=== PATIENT | male | born 1975 | race Caucasian/White ===

== ENCOUNTER → 2022-01-10 12:24 | Outpatient (BNVA) | payer SELFPAY | PROVIDERS: PCP Registered Nurse; Visit Provider Physician Assistant | DX: Z13.89 Encounter for screening for other disorder (principal) ==

== ENCOUNTER 2022-04-19 10:09 | Day surgery (SDC) | payer OTHER, SELFPAY ==
--- NOTE | 2022-04-18 11:59 | P.CONAN_ITS ---
Documented by User: Daina Urrutia NP 04/18/22 11:59 HPI - Anesthesia Eval Consult details Narrative: 47yo M for Colonoscopy [facility] Active Problems Active Problems: All Active Problems (Updated 04/13/22 @ 15:14 by Syeda Lamar, RN) Encounter for screening colonoscopy (Acute) Abdominal pain (Acute) Past Medical History Medical History (Updated 04/13/22 @ 15:14 by Syeda Lamar, RN) Elevated cholesterol History of COVID-19 Lactose intolerance Sleep pattern disturbance Family History Family History (Updated 01/10/22 @ 12:49 by Richelle Jim PA-C) Brother Crohn disease Mother Crohn disease Surgical History Surgical History (Updated 04/13/22 @ 15:11 by Syeda Lamar RN) Hx of colonoscopy Social History Social History (Updated 01/10/22 @ 12:54 by Richelle Jim PA-C) Household Members Other:: single Housing: House Alcohol intake: current Patient Tobacco Use Status: Never used Tobacco Advance Directives: No Advance Directives Information Provided: Yes Current occupational status: employed Current occupation: [email or web address] Meds Allergies Allergy/AdvReac Type Severity Reaction Status Date / Time No Known Allergies Allergy Verified 04/13/22 15:11 Home Medications Medication Instructions Recorded Confirmed Last Taken Type cholestyramine (with sugar) 4 gram 1 ea PO BID 01/10/22 04/13/22 Unknown History powder for susp in a packet trazodone 50 mg tablet 1 tab PO BEDTIME 04/13/22 04/13/22 Unknown History Exam Exam Date and Time: April 18, 2022 115 Assessment and Plan Assessment Anesthesia Assessment: Chart Reviewed Documented by User: Sabiha Eaton MD 04/19/22 10:41 [facility] Past Medical History Medical History (Updated 04/13/22 @ 15:14 by Syeda Lamar RN) Elevated cholesterol History of COVID-19 Lactose intolerance Sleep pattern disturbance Family History Family History (Updated 01/10/22 @ 12:49 by Richelle Jim PA-C) Brother Crohn disease Mother Crohn disease Family history of problems with anesthesia: No Surgical History Surgical History (Updated 04/13/22 @ 15:11 by Syeda Lamar RN) Hx of colonoscopy History of Problems with Anesthesia: No Social History Social History (Updated 01/10/22 @ 12:54 by Richelle Jim PA-C) Household Members Other:: single Housing: House Alcohol intake: current Patient Tobacco Use Status: Never used Tobacco Advance Directives: No Advance Directives Information Provided: Yes Current occupational status: employed Current occupation: [email or web address] Meds Allergies Allergy/AdvReac Type Severity Reaction Status Date / Time No Known Allergies Allergy Verified 04/13/22 15:11 Home Medications Medication Instructions Recorded Confirmed Last Taken Type cholestyramine (with sugar) 4 gram 1 ea PO BID 01/10/22 04/13/22 Unknown History powder for susp in a packet trazodone 50 mg tablet 1 tab PO BEDTIME 04/13/22 04/13/22 Unknown History Exam Airway Mallampati Class: II TM Dist: >3cm Neck ROM: Full Heart: rrr Lungs: cta Assessment and Plan Assessment Anesthesia Assessment: Anesthesia Plan Discussed and Chart Reviewed Final Anesthetic Review Family History of Problems with Anesthesia: No History of Problems with Anesthesia: No NPO: Yes ASA Class: II Final Preanesthetic Review: No Changes in Pt Med Stat, Meds/Allgs Chart Reviewed and Consent Obtained/Reviewed Patient Risk: Intermediate Procedure Risk: Intermediate Anesthetic Plan Anesthetic Plan: MAC: Disposition: Standard PACU
[2022-04-19 10:28] VITALS: BMI 32.2
[2022-04-19 10:30] VITALS: BP 136/93; PULSE 83; RESP 18; TEMP 36.1; O2SAT 97
[2022-04-19] MEDS: Lactated Ringers 1,000 ML 50 ML IVCONT (10:56)
--- NOTE | 2022-04-19 11:01 | MHC.SHP ---
Pre-Procedural Eval Section A Date of Service: 04/19/22 Section B Chief Complaint: Abd pain Details of Present Illness: This is a 46-year-old gentleman who is here for diagnostic colonoscopy for chronic diarrhea. Pt was previously also having LLQ pain for months earlier this year which has now resolved. He cont to have diarrhea however, has 2-3 soft BMs everyday with mild urgency but no tenesmus or blood. Had similar issues 6 years and was well, and that time had EGD and colonoscopy at [facility]. Was told he has diverticulosis but otherwise normal. Do not have these reports in system. Family history is pertinent for Crohn's disease in mom and brother. Father: prostate ca. No labs or imaging in system. Relevant Social History: Alcohol Use (occasional) Present Medications: see Short Stay Collaborative assessment Medical History: No relevant PMH History of Previous Operations: No relevant previous surgery Allergies: Allergies Allergy/AdvReac Type Severity Reaction Status Date / Time No Known Allergies Allergy Verified 04/13/22 15:11 Review of Systems Review of Systems Comment: Ten point review of system is negative except as mentioned above Exam Exam Comment: Gen appear: No acute distress, well nourished HEENT: no icterus, Chest: No overt resp distress Abd: soft, nontender, nondistended Psych: Stable affect, answering questions appropriately Neuro: A/Ox3 noted to move all extremities spontaneously Ext: no peripheral edema Plan Diagnosis/Plan: Unchanged I have reviewed the history and physical and performed a pertinent physical examination on my patient. No changes have occurred unless specified.
--- NOTE | 2022-04-19 11:12 | P.OP_ITS ---
Operative Note Operative Note Date of Service: 04/19/22 Narrative: Procedure: Colonoscopy Indication: Chronic Diarrhea Endoscopist: Jodi De Los Santos MD Anesthesia Provider: Dr Sabiha Rodriguez Anesthesia type: MAC Instrument: Olympus [id number]-[id number] Consent: Indication, risks vs benefits, and alternatives were discussed with the patient who gave written informed consent to proceed. Monitoring: EKG, pulse, pulse oximetry and blood pressure were monitored throughout the procedure. Medications: Please see anesthesia flowsheet. Procedure: The patient was brought to the procedure room and placed in the left lateral decubitus position. IV medications were administered by the anesthesia provider in attendance. A digital rectal exam was performed which was normal. The colonoscope was then inserted through the anus and advanced through the colon to the cecum at 80 cm, and terminal ileum. Mucosa was carefully examined under high definition white light as the instrument was slowly withdrawn in a retrograde panoramic fashion. Retroflexion was performed in rectum. The procedure was not difficult There were no immediate obvious complications. The quality of the prep was BBPS: 3+3+3 = adequate Withdrawal time 15 minutes. Limitations: No limitations. Findings: Mucosa: Normal to cecum and terminal ileum. Up to 25 cm of terminal ileum was carefully inspected. Random cold forceps biopsies were taken from right and left side of colon to r/o microscopic colitis. Protruding lesions: * Medium external hemorrhoids without stigmata of recent bleeding. Impression: 1. Normal colon and terminal ileum mucosa. (colon biopsy) 2. External hemorrhoids Recommendations: - Follow path results. Office will call or send a letter in 7-10 days with results. - Can take PRN antidiarrheal such as loperamide or imodium in the meantime. - Follow up in GI office as scheduled. - Repeat colonoscopy in 10 years for colon cancer screening.
[2022-04-19 11:45] VITALS: BP 105/75; PULSE 77; RESP 16; TEMP 36.3; O2SAT 94
[2022-04-19 12:00] VITALS: BP 115/81; PULSE 69; RESP 18; O2SAT 94
[2022-04-19 12:15] VITALS: BP 120/84; PULSE 69; RESP 18; TEMP 36.3; O2SAT 98
== END 2022-04-19 12:31 | disposition home or self-care (01) ==
PROVIDERS: PCP Registered Nurse; Visit Provider Internal Medicine
PROC: 0DJD8ZZ Inspection of Lower Intestinal Tract, Via Natural or Artificial Opening Endoscopic (ICD-10-PCS; CPT 45378; principal; 2022-04-19 12:30)
DX: Z12.11 Encounter for screening for malignant neoplasm of colon (principal); K64.8 Other hemorrhoids; K64.4 Residual hemorrhoidal skin tags; K52.9 Noninfective gastroenteritis and colitis, unspecified; E73.9 Lactose intolerance, unspecified; E78.00 Pure hypercholesterolemia, unspecified; G47.9 Sleep disorder, unspecified; Z79.899 Other long term (current) drug therapy; Z86.16 Personal history of COVID-19
CPT/HCPCS: 45380; 88305

== ENCOUNTER 2023-12-06 10:52 | Outpatient (REF) | payer OTHER, SELFPAY ==
--- NOTE | ~2023-12-06 | XR_ITS ---
EXAMINATION: XR CERVICAL SPINE XR LUMBAR SPINE XR SACROILIAC JOINTS XR ELBOW, BILATERAL XR KNEE, BILATERAL XR HAND/WRIST, BILATERAL COMPARISON: None available. TECHNIQUE: 5 views cervical spine. AP standing, sunrise, tunnel and lateral views of each knee. 4 views of each hand/wrist. 3 views of each elbow. 5 views of the lumbosacral spine. 3 views of the bilateral sacroiliac joints. FINDINGS: Left Hand/Wrist: Moderate degenerative changes in the first carpometacarpal joint with joint space narrowing and hypertrophic change. Alignment preserved. No acute displaced fracture appreciated. Bone mineralization is normal. Right Hand/Wrist: Moderate degenerative changes in the first carpometacarpal joint with joint space narrowing and hypertrophic change. Alignment preserved. Bone mineralization is normal. Sclerotic focus overlying the distal tuft of the right thumb. Cervical Spine: Bilateral facet hypertrophy with neural foraminal encroachment at C5-C6. Cervical spondylosis with moderate loss of disc space height at C5-C6. Left Knee: No significant joint effusion. Anterior superior patellar spur. Mild narrowing of the medial compartment. Tiny posterior patellar spurring. Right Knee: No significant joint effusion. Anterior superior patellar spur. Mild narrowing of the medial compartment. Left Elbow: Elbow joint effusion. Ossicle along the posterior aspect of an olecranon spur, possibly degenerative versus avulsion fracture of indeterminate age. Prominent 1 cm ossicle/calcification in the soft tissues adjacent to the medial epicondyle/distal humerus of indeterminate age and etiology. Faint ossific/calcific densities in the humeral radial articulation and adjacent soft tissues. Right Elbow: Prominent olecranon spur with thickening of the overlying soft tissues. Possible joint effusion is difficult to confirm. Alignment maintained. Mild spurring along the radial head. Lumbar Spine: Facet arthritis in the lower lumbar spine. Mild step-off between the segments of the distal aspect of the coccyx and remainder of the sacrum and coccyx of indeterminate age and etiology. Slight rightward curvature of the lumbar spine. Mild multilevel lumbar spondylosis. Bilateral Sacroiliac Joints: Mild degenerative changes in the bilateral sacroiliac joints. Degenerative changes on limited views of the bilateral hips. Pubic symphysis is maintained. Surgical clips overlie the scrotal region on the right. XR/XR sacroiliac joint min 3V IMPRESSION: 1. Moderate degenerative changes in the bilateral first carpometacarpal joints. 2. Cervical spondylosis with moderate loss of disc space height at C5-C6. 3. Mild degenerative changes in the bilateral knees. 4. Left elbow joint effusion. Ossicle along the posterior aspect of an olecranon spur, possibly degenerative versus avulsion fracture of indeterminate age. Prominent 1 cm ossicle/calcification in the soft tissues adjacent to the medial epicondyle/distal humerus of indeterminate age and etiology. 5. Prominent olecranon spur with thickening of the overlying soft tissues. Possible joint effusion is difficult to confirm. 6. Mild step-off between the segments of the distal aspect of the coccyx and remainder of the sacrum and coccyx of indeterminate age and etiology. 7. Mild degenerative changes in the bilateral sacroiliac joints. Degenerative changes on limited views of the bilateral hips. Additional imaging with MRI recommended if there is clinical concern for fracture or other underlying pathology.
== END 2023-12-06 10:53 | disposition home or self-care (01) ==
LOC: HO.XRAY 10:52
PROVIDERS: PCP Registered Nurse; Visit Provider Student in an Organized Health Care Education/Training Program
DX: M06.9 Rheumatoid arthritis, unspecified (principal); M25.50 Pain in unspecified joint; M47.812 Spondylosis without myelopathy or radiculopathy, cervical region; M25.422 Effusion, left elbow
CPT/HCPCS: 72050; 72110; 72202; 73080; 73110; 73130; 73564

== ENCOUNTER 2024-01-07 08:24 | Outpatient (REF) | payer OTHER, SELFPAY ==
[2024-01-07 09:35] LABS: MANUAL DIFF FLAG NO
[2024-01-07 10:07] LABS: Basophils Absolute Auto 0.1 X10*3/uL (0.0-0.2); Basophils Percent Auto 1.1 % (0-2); Eosinophils Absolute Auto 0.3 X10*3/uL (0.0-0.4); Eosinophils Percent Auto 5.5 % (0-4); Hematocrit 46.8 % (42.0-52.0); Hemoglobin 16.4 g/dl (14.0-18.0); Imm Gran Abs Auto 0.03 X10*3/uL (0.00-0.03); Imm Gran Pct Auto 0.5 % (0.0-0.4); Lymphocytes Absolute Auto 2.6 X10*3/uL (1.2-4.9); Lymphocytes Percent Auto 45.6 % (20-40); Mean Corpuscular Hemoglobin 30.5 pg (27.0-33.0); Mean Platelet Volume 9.4 fL (9.4-12.4); Monocytes Absolute Auto 0.5 X10*3/uL (0.1-1.2); Monocytes Percent Auto 9.4 % (2-11); Neutrophils Absolute Auto 2.1 x10*3/uL (2.0-8.3); Neutrophils Percent Auto 37.9 % (45-73); Platelet Count 230 X10*3/uL (160-400); Red Blood Count 5.38 X10*6/uL (4.60-5.80); Red Cell Distribution Width 12.4 % (11.0-16.0); White Blood Count 5.6 X10*3/uL (4.8-10.8)
[2024-01-07 10:55] LABS: Alanine Aminotransferase 70 U/L (0-40); Alkaline Phosphatase 63 U/L (39-117); Anion Gap 15 (12-20); Aspartate Amino Transferase 40 U/L (5-37); Bilirubin Total 0.5 mg/dL (0.0-1.0); Blood Urea Nitrogen 16 mg/dL (9-16); C Reactive Protein 0.54 mg/dL (< or = 0.50); Calcium 9.2 mg/dL (8.4-10.2); Carbon Dioxide 24 mmol/L (22-29); Chloride 105 mmol/L (96-108); Estimated Glomerular Filt Rate > 60; Glucose Random 97 mg/dL (60-115); Potassium 3.8 mmol/L (3.3-5.1); Sodium 140 mmol/L (135-145); Total Protein 7.1 g/dL (6.5-8.0)
[2024-01-07 11:12] LABS: HBS Num1 0.31 mIU/mL (0-7.99); HBc Num1 0.07 S/CO (0.00-0.79); HBsAGNum1 0.26 S/CO (0.00-0.99); Hepatitis A Antibody IgM 0.17 Index (0-0.79); Hepatitis B Core Antibody Nonreactive (Nonreactive); Hepatitis B Surface Antigen Negative (Negative); ~HepC Num1 0.07 S/CO (0.00-0.79); ~Hepatitis A Antibody IgM Nonreactive (Nonreactive); ~Hepatitis B Surface Antibody NONREACTIVE (Nonreactive); ~Hepatitis C Antibody Nonreactive (Nonreactive)
[2024-01-09 18:13] LABS: IgA 287 mg/dL (47-310); IgG 1020 mg/dL (600-1640); IgM 82 mg/dL (50-300)
[2024-01-09 21:13] LABS: Prot Elec - Albumin 4.3 g/dL (3.8-4.8); Prot Elec - Alpha1 0.3 g/dL (0.2-0.3); Prot Elec - Alpha2 0.6 g/dL (0.5-0.9); Prot Elec - Beta 1 0.5 g/dL (0.4-0.6); Prot Elec - Beta 2 0.5 g/dL (0.2-0.5); Prot Elec - Gamma 0.9 g/dL (0.8-1.7); Prot Elec - Total Protein 6.9 g/dL (6.1-8.1)
[2024-01-10 08:04] LABS: TS Negative Control Passed; TS Panel A 1; TS Panel B 0; TS Positive Control Passed; TSpotTB Negative (Negative)
[2024-01-10 14:03] LABS: HLA B27 Positive (Negative)
[2024-01-10 23:14] LABS: Angiotensin Converting Enzyme 28.2 U/L (9-67)
[2024-01-15 14:28] LABS: Lysozyme, Serum 5.7 mcg/mL (5.0-11.0)
== END 2024-01-07 08:25 | disposition home or self-care (01) ==
LOC: HO.LAB 08:24
PROVIDERS: PCP Registered Nurse; Visit Provider Student in an Organized Health Care Education/Training Program
DX: Z11.59 Encounter for screening for other viral diseases (principal); Z11.7 Encounter for testing for latent tuberculosis infection; M06.9 Rheumatoid arthritis, unspecified; D86.9 Sarcoidosis, unspecified; M45.9 Ankylosing spondylitis of unspecified sites in spine; K50.10 Crohn's disease of large intestine without complications; Z72.89 Other problems related to lifestyle
CPT/HCPCS: 80053; 82164; 82550; 82784; 84165; 85025; 85549; 86021; 86036; 86140; 86334; 86481; 86671; 86704; 86706; 86709; 86803; 86812; 87340

== ENCOUNTER 2024-01-07 08:24 | Outpatient (AMB) | payer OTHER, SELFPAY ==
[2024-01-07 08:26] VITALS: BP 130/74; PULSE 79; O2SAT 98; BMI 36.1
--- NOTE | 2024-01-07 08:26 | A.OFFVIS_ITS ---
Vital Signs 01/07/24 08:26 Height 5 ft 7 in Weight 230 lb 6.129 oz BMI 36.1 BP 130/74 Blood Pressure Location Rt brachial Position Sitting Pulse 79 Pulse Source Pulse Oximeter Pulse Oximetry (%) 98 Oxygen Delivery Method Room Air Intake Visit Reasons: RF +ve Intake Note: Patient last seen 12/06/23 presents today for follow up and test results. Translator And Interpreter Required: No Accompanied by: Self / Same As Patient Allergies No Known Allergies Allergy (Verified 01/07/24 08:38) Medication List - Last Reconciled 01/07/24 by Odalys Hong MD cholecalciferol (vitamin D3) 25 mcg PO DAILY loperamide (Imodium A-D) 2 mg PO Q6H PRN multivitamin 1 tab PO DAILY naproxen 500 mg PO BID thiamine HCl (vitamin B1) (Vitamin B-1) 100 mg PO DAILY tramadol 50 mg PO Q4H PRN HPI Comments Details: Patient returns for follow-up after completion of his x-rays. He did not do the ordered blood work. Stated that he has been under lot of stress recently as his mother and he had to drive to [place]. States that his joint pain is much more severe especially back as he has been doing plenty of driving recently. He has been off the prednisone and his joint pain is worse. Especially of his elbows, wrists, back. He drinks multiple alcoholic beverages nightly to deal with all the stress. Initial history: This is a 48-year-old male who presents for evaluation of multiple joint pain and positive rheumatoid factor. Stated that the condition started about 3 years ago when he developed an infectious mononucleosis infection. Around that time he was having multiple joint pain including his knees, elbows. Told that he had high levels of inflammation. A few months later he was diagnosed with a CMP infection and was told that he had similar symptoms. He was also treated for Lyme disease. Does Not recall being evaluated by [facility]. States that he has had numerous moles of treatment such as physical therapy, chiropractor, acupuncture. He was evaluated by pain management and had facet injections as well as trigger point injections. States that some of the injections did help. States that he would have different courses of steroids which help transiently. States that he was diagnosed with a corneal condition and has done numerous surgeries for his corneas. Does not recall ever being diagnosed with uveitis or iritis. His brother and mother both have Crohn's disease. Patient had a colonoscopy in 2021 which did not show colitis. Most recently he was started on a steroid taper by his PCP starting at 6 tabs daily. Currently he is on 2 tabs daily. The majority of his pain is in both is elbows, worse on the right. The pain radiates down his right hand and wrist. States that 2 years ago he fell and broke his right elbow and had right elbow surgery to clean out the chipped off bone States that his elbow pain is unrelated to that surgery. He also has diffuse back pain and stiffness. Denies any fevers or weight loss. Previously patient was doing different exercises such as volleyball, basketball and power lifting. Over the last 3 years he has not been able to do any of that. Denies any history of STDs or genital infections. He was recently evaluated at the [facility] 3 weeks ago and was told that he has fibromyalgia [facility] Medical History (Updated 01/07/24 @ 09:04 by Odalys Hong MD) Polyarthralgia Sleep pattern disturbance History of COVID-19 Lactose intolerance Elevated cholesterol Surgical History Hx of colonoscopy Family History Brother Crohn disease Mother Crohn disease Social History Household Members Other:: single Housing: House Alcohol intake: current Alcohol intake frequency: a few times a week Patient Tobacco Use Status: Never used Tobacco Current occupational status: employed Current occupation: IT[employer] Review of Systems Const Reports fatigue and Reports weakness Musc Reports back pain, Reports deformity, Reports arthralgias, Reports muscle weakness and Reports stiffness Neuro Reports weakness Psych Reports abnormal sleep pattern, Reports anxiety and Reports depression Endo Reports fatigue Physical Exam Vital Signs: Last Vital Signs Pulse 79 01/07/24 08:26 BP 130/74 01/07/24 08:26 Pulse Ox 98 01/07/24 08:26 Oxygen Delivery Method Room Air 01/07/24 08:26 BMI result Body Mass Index 36.1 Const General: cooperative, healthy appearing and comfortable Nutritional Appearance: obese Orientation/consciousness: patient oriented x3 Limitations: no limitations HEENT Head: Yes normocephalic and Yes atraumatic Mouth: moist mucous membranes Resp Effort & Inspection: normal respiratory effort and able to speak in complete sentences Auscultation: clear to auscultation bilaterally Cardio Rate: regular rate Rhythm: regular rhythm GI Inspection: No distended Palpation (GI): Soft to palpation and nontender Skin General skin exam: no rashes or lesions noted Neuro General: patient oriented x3 Extrem Other: Left wrist tenderness to palpation and pain with full extension No swelling or tenderness left hand No left elbow pain with full flexion and extension Right wrist tenderness Mildly reduced right hand manager copy strength Positive resisted wrist extension test on the right Tenderness upon palpation of the right common extensor origin No nail pitting Normal nailfold capillaroscopy Normal range of motion of shoulders without pain Positive lift-off test on the right No knee swelling or tenderness bilaterally No ankle swelling or tenderness bilaterally Wicho test 10-15 cm Normal lateral flexion test Almost normal range of motion of neck Results Reviewed Results Reviewed: Labs 10/2023? CATRACHO screen IFA/dsDNA Crithidia/chromatin/Grissom/SOFTWARE QUALITY SPECIALIST/SSA/SSB/SCL 70/Nereyda 1/centromere/cardiolipin IgA/cardiolipin IgG/cardiolipin IgM/beta 2 glycoprotein IgA/beta 2 glycoprotein IgG G/beta 2 glycoprotein IgM/CCP/citrullinated vimentin/TPO all negative C3 and C4 normal Rheumatoid factor IgA 7 RF factor IgG 6 RF factor IgM 37 H CBC unremarkable CMP unremarkable ESR 11 CRP 4.5 (<8.0) TSH 4.06 normal? T4 7.6 normal? T3 uptake 28% normal Tick panel negative HIV 1/2 antibody/antigen 4th generation negative Total cholesterol 356? Triglyceride 414? HDL 65? LDL 256 Assessment & Plan Assessment & Plan (1) Polyarthralgia: Code(s): M25.50 - Pain in unspecified joint Category: Medical Plan: This is a 48-year-old male who presents for evaluation of 3 year history of diffuse joint pain including back, elbows, knees. Recent labs showed positive rheumatoid factor. Positive family history of Crohn's colitis. Colonoscopy in 2021 was negative for inflammatory bowel disease. Will order comprehensive serology to screen for underlying autoimmune rheumatic disease. Check x-rays of involved joints. Will request records from patient's other providers Advised patient to try to hold off on taking any prednisone or NSAIDs before next visit Follow-up in about 6 weeks (2) Seropositive rheumatoid arthritis: Comment: +RF -ve CCP dx 12/2023 Code(s): M05.9 - Rheumatoid arthritis with rheumatoid factor, unspecified Category: Medical Plan: This is a 48-year-old male who presents for evaluation of 3 year history of diffuse joint pain including back, elbows, knees.? Recent labs showed positive rheumatoid factor.? Positive family history of Crohn's colitis.? Colonoscopy in 2021 was negative for inflammatory bowel disease.? On exam he has multiple tender and swollen joint. He has bilateral elbow joint effusion on exam. Clinical picture consistent with new onset seropositive rheumatoid arthritis. Will need to start DMARDs. Patient is not a candidate for sulfasalazine, leflunomide and methotrexate due to excessive alcohol consumption. Discussed risks and benefits of Humira. Patient agreed to proceed. Will start prior authorization for Humira Labs today and before next visit in 3 months. Awaiting T spot send Humira prescription (3) High risk medication use: Code(s): Z79.899 - Other long term acute care registered nurse (current) drug therapy Category: Medical Plan: Side effects of Enbrel were discussed with the patient in detail including increased risk of infection, demyelinating disease, reactivation of latent TB, possible increased risk of solid and skin tumors, injection site reactions. Patient fully aware. Advised patient to seek medical care RAKEL if patient has an infection and advised patient to stop the medication until the infection is resolved. Plan I spent 29 minutes reviewing patient's chart, evaluating patient, ordering diagnostic workup, counseling patient and documenting in the chart Orders: Orders Complete Blood Count Auto Diff 3 Months M06.9 - Rheumatoid arthritis, unspecified Comprehensive Met. Panel 3 Months M06.9 - Rheumatoid arthritis, unspecified C Reactive Protein 3 Months M06.9 - Rheumatoid arthritis, unspecified Erythrocyte Sedimentation Rate 3 Months M06.9 - Rheumatoid arthritis, unspecified Coding Level of Care Code Est Pt Level 4 (70329) Diagnoses Polyarthralgia M25.50 Seropositive rheumatoid arthritis M05.9 High risk medication use Z79.899
== END 2024-01-07 09:00 | disposition home or self-care (01) ==
PROVIDERS: PCP Registered Nurse; Visit Provider Student in an Organized Health Care Education/Training Program
DX: M05.79 Rheumatoid arthritis with rheumatoid factor of multiple sites without organ or systems involvement (principal); M25.50 Pain in unspecified joint; Z79.899 Other long term (current) drug therapy
CPT/HCPCS: 99214

== ENCOUNTER 2024-01-24 12:46 | Outpatient (AMB) | payer OTHER, SELFPAY ==
--- NOTE | 2024-01-24 12:48 | MHC.OFFVIS ---
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 The patient states that 2 weeks ago he splinted 3-4 steps when he had acute onset of pain. He had an ultrasound of his left lower leg last week which showed tearing of his medial gastrocnemius muscle. He has been weight-bearing as tolerated. Allergies No Known Allergies Allergy (Verified 01/24/24 12:50) Medication List - Last Reconciled 01/25/24 by Fermin Mcgill MD cholecalciferol (vitamin D3) 25 mcg PO DAILY Hyrimoz(CF) Pen (adalimumab-adaz) 40 mg (0.4 mL) subcut Q14D NS loperamide (Imodium A-D) 2 mg PO Q6H PRN multivitamin 1 tab PO DAILY naproxen 500 mg PO BID thiamine HCl (vitamin B1) (Vitamin B-1) 100 mg PO DAILY PFSH Medical History (Updated 01/25/24 @ 07:39 by Fermin Mcgill MD) Polyarthralgia Sleep pattern disturbance History of COVID-19 Lactose intolerance Elevated cholesterol Surgical History Hx of colonoscopy Family History Brother Crohn disease Mother Crohn disease Social History Household Members Other:: single Housing: House Alcohol intake: current Alcohol intake frequency: a few times a week Patient Tobacco Use Status: Never used Tobacco Current occupational status: employed Current occupation: [employer] Physical Exam Const Other: Well-nourished well-developed very friendly male awake alert and oriented x3 in no acute distress Extrem Other: Bilateral lower extremity examination shows good capillary refill, no skin lesions noted, normal sensation light touch Left calf examination shows no tenderness along his Achilles tendon, no palpable defect, tenderness and swelling along the mid aspect of his medial calf, no overlying skin lesions, his leg compartments are soft Results Reviewed Results Reviewed: Ultrasound of the patient's left lower leg performed on 01/18/2024 shows a hemorrhagic collection within the left medial gastrocnemius muscle consistent with a grade 2-3 tear Assessment & Plan Assessment & Plan (1) Pain of left calf: Code(s): M79.662 - Pain in left lower leg Category: Medical Plan Mr. Reyes presents with left calf pain due to a medial gastrocnemius muscle tear. I had a lengthy discussion with the patient regarding the treatment options. The patient's injury should heal over the next few months with non operative treatment. We will hold off on physical therapy for now because the patient still remains quite tender. I will see him back in 3-4 weeks' time for repeat clinical examination. If his discomfort at that time has improved we will further discuss having him go to formal physical therapy. Feel free to call me at any time should questions regarding his orthopedic management arise. I spent 21 minutes in reviewing the patient's records and imaging studies, seeing the patient and documenting in the medical record. Coding Level of Care Code New Pt Level 2 (05165) Diagnoses Pain of left calf M79.662
== END 2024-01-24 13:15 | disposition home or self-care (01) ==
PROVIDERS: PCP Registered Nurse; Visit Provider Orthopaedic Surgery
DX: M79.662 Pain in left lower leg (principal)
CPT/HCPCS: 99203

== ENCOUNTER → 2024-01-24 12:46 | Outpatient (BNVA) | payer OTHER, SELFPAY | PROVIDERS: PCP Registered Nurse; Visit Provider Orthopaedic Surgery ==

== ENCOUNTER 2024-02-25 08:58 | Outpatient (AMB) | payer OTHER, SELFPAY ==
--- NOTE | 2024-02-25 09:06 | A.OFFVIS_ITS ---
Vital Signs 02/25/24 09:07 Height 5 ft 7 in Weight 220 lb BMI 34.5 Intake Visit Reasons: OV-2-3 Muscle tear, left leg Intake Note: Herberth is a 49 yr old male who presents for routine follow-up after suffering a left calf strain on 01/14/2024. The patient states that he has been going to formal physical therapy over the last few weeks. States that his discomfort has improved significantly. He has been able to do quite a bit of walking while vacationing in [place], [place]. He has also returned to riding his motorcycle without difficulty. He takes Advil as needed for his discomfort. Allergies No Known Allergies Allergy (Verified 02/25/24 09:08) Medication List - Last Reconciled 02/25/24 by Fermni Mcgill MD adalimumab (Humira Pen) inject one - 40 mg/0.8 mL pen every 2 weeks subcut cholecalciferol (vitamin D3) 25 mcg PO DAILY Hyrimoz(CF) Pen (adalimumab-adaz) 40 mg (0.4 mL) subcut Q14D NS loperamide (Imodium A-D) 2 mg PO Q6H PRN multivitamin 1 tab PO DAILY naproxen 500 mg PO BID thiamine HCl (vitamin B1) (Vitamin B-1) 100 mg PO DAILY PFSH Medical History (Updated 01/25/24 @ 07:39 by Fermin Mcgill MD) Polyarthralgia Sleep pattern disturbance History of COVID-19 Lactose intolerance Elevated cholesterol Surgical History Hx of colonoscopy Family History Brother Crohn disease Mother Crohn disease Social History Household Members Other:: single Housing: House Alcohol intake: current Alcohol intake frequency: a few times a week Patient Tobacco Use Status: Never used Tobacco Current occupational status: employed Current occupation: [employer] Physical Exam Vital Signs: BMI result Body Mass Index 34.5 Const Other: Well-nourished well-developed very friendly male awake alert and oriented x3 in no acute distress Extrem Other: Bilateral lower extremity examination shows good capillary refill, no skin lesions noted, normal sensation light touch Left calf examination shows mild tenderness to palpation over the mid aspect of his calf musculature, no defects, minimal discomfort with resisted plantar flexion, no overlying skin lesions Assessment & Plan Assessment & Plan (1) Pain of left calf: Code(s): M79.662 - Pain in left lower leg Category: Medical Plan Mr. Reyes continues to improve after suffering a left calf strain on 01/14/2024. He will continue going to formal physical therapy for now. He will continue with his activity modifications. He will gradually transition to a home stretching program. He will contact me prior to his follow-up appointment in 2 months should any questions or concerns arise. Feel free to call me at any time should questions regarding his orthopedic arise. I spent 20 minutes in reviewing the patient's records and imaging studies, seeing the patient and documenting in the medical record. Coding Level of Care Code Est Pt Level 3 (70352) Diagnoses Pain of left calf M79.662
[2024-02-25 09:07] VITALS: BMI 34.5
== END 2024-02-25 09:27 | disposition home or self-care (01) ==
PROVIDERS: PCP Registered Nurse; Visit Provider Orthopaedic Surgery
DX: M79.662 Pain in left lower leg (principal)
CPT/HCPCS: 99213

== ENCOUNTER → 2024-02-25 08:58 | Outpatient (BNVA) | payer OTHER, SELFPAY | PROVIDERS: PCP Registered Nurse; Visit Provider Orthopaedic Surgery ==

== ENCOUNTER 2024-03-27 16:13 | Outpatient (REF) | payer OTHER, SELFPAY ==
[2024-03-27 16:26] LABS: MANUAL DIFF FLAG NO
[2024-03-27 17:18] LABS: Basophils Absolute Auto 0.1 X10*3/uL (0.0-0.2); Basophils Percent Auto 0.7 % (0-2); Eosinophils Absolute Auto 0.5 X10*3/uL (0.0-0.4); Eosinophils Percent Auto 5.6 % (0-4); Hematocrit 49.3 % (42.0-52.0); Hemoglobin 17.1 g/dl (14.0-18.0); Imm Gran Abs Auto 0.04 X10*3/uL (0.00-0.03); Imm Gran Pct Auto 0.4 % (0.0-0.4); Lymphocytes Absolute Auto 3.1 X10*3/uL (1.2-4.9); Lymphocytes Percent Auto 34.5 % (20-40); Mean Corpuscular HGB Conc 34.7 g/dl (31.0-36.0); Mean Corpuscular Hemoglobin 30.1 pg (27.0-33.0); Mean Corpuscular Volume 86.6 fL (80.0-98.0); Mean Platelet Volume 9.2 fL (9.4-12.4); Monocytes Absolute Auto 0.9 X10*3/uL (0.1-1.2); Monocytes Percent Auto 9.6 % (2-11); Neutrophils Absolute Auto 4.4 x10*3/uL (2.0-8.3); Neutrophils Percent Auto 49.2 % (45-73); Platelet Count 264 X10*3/uL (160-400); Red Blood Count 5.69 X10*6/uL (4.60-5.80); Red Cell Distribution Width 12.6 % (11.0-16.0); White Blood Count 8.9 X10*3/uL (4.8-10.8)
[2024-03-27 17:33] LABS: Alanine Aminotransferase 96 U/L (0-40); Albumin Level 4.7 g/dL (3.5-5.0); Alkaline Phosphatase 73 U/L (39-117); Anion Gap 12 (12-20); Aspartate Amino Transferase 44 U/L (5-37); Bilirubin Total 0.7 mg/dL (0.0-1.0); Blood Urea Nitrogen 20 mg/dL (9-16); C Reactive Protein 1.03 mg/dL (< or = 0.50); Calcium 9.7 mg/dL (8.4-10.2); Carbon Dioxide 27 mmol/L (22-29); Chloride 104 mmol/L (96-108); Estimated Glomerular Filt Rate > 60; Glucose Random 87 mg/dL (60-115); Potassium 3.9 mmol/L (3.3-5.1); Sodium 139 mmol/L (135-145); Total Protein 8.2 g/dL (6.5-8.0)
[2024-03-27 18:02] LABS: Erythrocyte Sedimentation Rate 9 MM/HR (0-15)
== END 2024-03-27 16:14 | disposition home or self-care (01) ==
LOC: HO.LAB 16:13
PROVIDERS: PCP Registered Nurse; Visit Provider Student in an Organized Health Care Education/Training Program
DX: M06.9 Rheumatoid arthritis, unspecified (principal)
CPT/HCPCS: 36415; 80053; 85025; 85652; 86140

== ENCOUNTER 2024-04-03 15:54 | Outpatient (AMB) | payer OTHER, SELFPAY ==
[2024-04-03 16:02] VITALS: BP 136/78; PULSE 76; O2SAT 96; BMI 34.8
--- NOTE | 2024-04-03 16:02 | MHC.OFFVIS ---
Vital Signs 04/03/24 16:02 Height 5 ft 7 in Weight 222 lb 7.143 oz BMI 34.8 BP 136/78 Blood Pressure Location Lt brachial Position Sitting Pulse 76 Pulse Source Pulse Oximeter Pulse Oximetry (%) 96 Oxygen Delivery Method Room Air Intake Visit Reasons: RA/CM Intake Note: Patient is here to follow up on RA, and follow up on blood work. Allergies No Known Allergies Allergy (Verified 04/03/24 16:03) Medication List - Last Reconciled 04/03/24 by Odalys Hong MD adalimumab (Humira Pen) inject one - 40 mg/0.8 mL pen every 2 weeks subcut cholecalciferol (vitamin D3) 25 mcg PO DAILY Hyrimoz(CF) Pen (adalimumab-adaz) 40 mg (0.4 mL) subcut Q2W NS loperamide (Imodium A-D) 2 mg PO Q6H PRN magnesium 250 mg PO DAILY multivitamin 1 tab PO DAILY naproxen 500 mg PO BID thiamine HCl (vitamin B1) (Vitamin B-1) 100 mg PO DAILY ubidecarenone-omega 3-vit E 25-150-200 mg-mg-unit (Co A-05-Kvdlvvp E-Fish Oil) 1 cap PO DAILY HPI Comments Details: 49-year-old male with newly diagnosed seropositive rheumatoid arthritis returns for follow-up. He has been taking adalimumab regularly for the last 3 months. Has not had any side effects to it. States that he feels that his pains are about the same. He tore his left calf while sprinting a couple of months ago. He feels It has completely healed. He states that he continues to have diffuse back pain. He had nerve blocks recently by Pain Management without improvement. He has noted a tender bony bump on the dorsum of his left foot Initial history: This is a 48-year-old male who presents for evaluation of multiple joint pain and positive rheumatoid factor. Stated that the condition started about 3 years ago when he developed an infectious mononucleosis infection. Around that time he was having multiple joint pain including his knees, elbows. Told that he had high levels of inflammation. A few months later he was diagnosed with a CMP infection and was told that he had similar symptoms. He was also treated for Lyme disease. Does Not recall being evaluated by Integrative [facility]. States that he has had numerous moles of treatment such as physical therapy, chiropractor, acupuncture. He was evaluated by pain management and had facet injections as well as trigger point injections. States that some of the injections did help. States that he would have different courses of steroids which help transiently. States that he was diagnosed with a corneal condition and has done numerous surgeries for his corneas. Does not recall ever being diagnosed with uveitis or iritis. His brother and mother both have Crohn's disease. Patient had a colonoscopy in 2021 which did not show colitis. Most recently he was started on a steroid taper by his PCP starting at 6 tabs daily. Currently he is on 2 tabs daily. The majority of his pain is in both is elbows, worse on the right. The pain radiates down his right hand and wrist. States that 2 years ago he fell and broke his right elbow and had right elbow surgery to clean out the chipped off bone States that his elbow pain is unrelated to that surgery. He also has diffuse back pain and stiffness. Denies any fevers or weight loss. Previously patient was doing different exercises such as volleyball, basketball and power lifting. Over the last 3 years he has not been able to do any of that. Denies any history of STDs or genital infections. He was recently evaluated at [facility] 3 weeks ago and was told that he has fibromyalgia [facility] Medical History Sleep pattern disturbance History of COVID-19 Lactose intolerance Elevated cholesterol Surgical History Hx of colonoscopy Family History Brother Crohn disease Mother Crohn disease Social History Household Members Other:: single Housing: House Alcohol intake: current Alcohol intake frequency: a few times a week Patient Tobacco Use Status: Never used Tobacco Current occupational status: employed Current occupation: [employer] Review of Systems Const Reports weakness Musc Reports back pain, Reports deformity, Reports arthralgias, Reports muscle weakness and Reports stiffness Neuro Reports weakness Psych Reports abnormal sleep pattern, Reports anxiety and Reports depression Physical Exam Vital Signs: Last Vital Signs Pulse 76 04/03/24 16:02 BP 136/78 04/03/24 16:02 Pulse Ox 96 04/03/24 16:02 Oxygen Delivery Method Room Air 04/03/24 16:02 BMI result Body Mass Index 34.8 Const General: cooperative, healthy appearing and comfortable Nutritional Appearance: obese Orientation/consciousness: patient oriented x3 Limitations: no limitations HEENT Head: Yes normocephalic and Yes atraumatic Mouth: moist mucous membranes Resp Effort & Inspection: normal respiratory effort and able to speak in complete sentences Cardio Rate: regular rate Rhythm: regular rhythm Skin General skin exam: no rashes or lesions noted Neuro General: patient oriented x3 Extrem Other: No wrist tenderness to palpation or pain with flexion and extension No active synovitis both hands and wrists 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 CATRACHO screen IFA/dsDNA Crithidia/chromatin/Grissom/TRAINING PROJECT MANAGER/SSA/SSB/SCL 70/Nereyda 1/centromere/cardiolipin IgA/cardiolipin IgG/cardiolipin IgM/beta 2 glycoprotein IgA/beta 2 glycoprotein IgG G/beta 2 glycoprotein IgM/CCP/citrullinated vimentin/TPO all negative C3 and C4 normal Rheumatoid factor IgA 7 RF factor IgG 6 RF factor IgM 37 H CBC unremarkable CMP unremarkable ESR 11 CRP 4.5 (<8.0) TSH 4.06 normal? T4 7.6 normal? T3 uptake 28% normal Tick panel negative HIV 1/2 antibody/antigen 4th generation negative Total cholesterol 356? Triglyceride 414? HDL 65? LDL 256 XR/XR sacroiliac joint min 3V IMPRESSION: 1. Moderate degenerative changes in the bilateral first carpometacarpal joints. 2. Cervical spondylosis with moderate loss of disc space height at C5-C6. 3. Mild degenerative changes in the bilateral knees. 4. Left elbow joint effusion. Ossicle along the posterior aspect of an olecranon spur, possibly degenerative versus avulsion fracture of indeterminate age. Prominent 1 cm ossicle/calcification in the soft tissues adjacent to the medial epicondyle/distal humerus of indeterminate age and etiology. 5. Prominent olecranon spur with thickening of the overlying soft tissues. Possible joint effusion is difficult to confirm. 6. Mild step-off between the segments of the distal aspect of the coccyx and remainder of the sacrum and coccyx of indeterminate age and etiology. 7. Mild degenerative changes in the bilateral sacroiliac joints. Degenerative changes on limited views of the bilateral hips. Assessment & Plan Assessment & Plan (1) Seropositive rheumatoid arthritis: Comment: +RF -ve CCP dx 12/2023 Adalimumab 12/2023 effective Code(s): M05.9 - Rheumatoid arthritis with rheumatoid factor, unspecified Category: Medical Plan: This is a 49-year-old male who presents for evaluation of 3 year history of diffuse joint pain including back, elbows, knees.? Initial labs showed positive rheumatoid factor.? Positive family history of Crohn's colitis.? Colonoscopy in 2021 was negative for inflammatory bowel disease.? On exam he has multiple tender and swollen joint. He has bilateral elbow joint effusion on exam. Additional set of labs showed positive HLA B27 Clinical picture consistent with new onset inflammatory arthritis I think despite patient has positive rheumatoid factor clinically it is more consistent with a seronegative spondyloarthropathy. Patient states that he has not felt better since adalimumab was started. However on exam most of his peripheral joints are much improved including his elbows, wrists, hands. Had a long discussion today with patient regarding the difference between inflammatory and osteoarthritis. His pains are largely related to osteoarthritis, mostly of his back. Continue with adalimumab 40 mg every other week Labs before next visit in 5 months (2) High risk medication use: Code(s): Z79.899 - Other intermediate accountant (current) drug therapy Category: Medical Plan: Side effects of adalimumab were discussed with the patient in detail including increased risk of infection, demyelinating disease, reactivation of latent TB, possible increased risk of solid and skin tumors, injection site reactions. Patient fully aware. Advised patient to seek medical care RAKEL if patient has an infection and advised patient to stop the medication until the infection is resolved. Plan I spent 29 minutes reviewing patient's chart, evaluating patient, ordering diagnostic workup, counseling patient and documenting in the chart Orders: Orders Complete Blood Count Auto Diff 5 Months M05.9 - Rheumatoid arthritis with rheumatoid factor, unspecified Comprehensive Met. Panel 5 Months M05.9 - Rheumatoid arthritis with rheumatoid factor, unspecified C Reactive Protein 5 Months M05.9 - Rheumatoid arthritis with rheumatoid factor, unspecified Erythrocyte Sedimentation Rate 5 Months M05.9 - Rheumatoid arthritis with rheumatoid factor, unspecified Coding Level of Care Code Est Pt Level 4 (63482) Diagnoses Seropositive rheumatoid arthritis M05.9 High risk medication use Z79.899
== END 2024-04-03 16:28 | disposition home or self-care (01) ==
PROVIDERS: PCP Registered Nurse; Visit Provider Student in an Organized Health Care Education/Training Program
DX: M05.79 Rheumatoid arthritis with rheumatoid factor of multiple sites without organ or systems involvement (principal); Z79.899 Other long term (current) drug therapy
CPT/HCPCS: 99214

== ENCOUNTER → 2024-04-03 15:54 | Outpatient (BNVA) | payer OTHER, SELFPAY | PROVIDERS: PCP Registered Nurse; Visit Provider Student in an Organized Health Care Education/Training Program ==

== ENCOUNTER 2024-09-03 15:53 | Outpatient (AMB) | payer OTHER, SELFPAY ==
--- NOTE | 2024-09-03 15:55 | A.OFFVIS_ITS ---
Vital Signs 09/03/24 16:00 Height 5 ft 7 in Weight 226 lb 6.636 oz BMI 35.5 BP 142/100 H Blood Pressure Location Rt brachial Position Sitting Pulse 88 Pulse Source Pulse Oximeter Pulse Oximetry (%) 98 Oxygen Delivery Method Room Air Intake Visit Reasons: RA Intake Note: Patient presents for RA. Allergies No Known Allergies Allergy (Verified 09/03/24 15:57) Medication List - Last Reconciled 09/03/24 by MD Alyse Porter(CF) Pen (adalimumab-adaz) 40 mg (0.4 mL) subcut Q2W NS multivitamin 1 tab PO DAILY thiamine HCl (vitamin B1) (Vitamin B-1) 100 mg PO DAILY ubidecarenone-omega 3-vit E 25-150-200 mg-mg-unit (Co G-89-Yuhuocz E-Fish Oil) 1 cap PO DAILY HPI Comments Details: 49-year-old male with seropositive rheumatoid arthritis returns for follow-up. He remains on adalimumab 40 mg every other week. He states that his back pain has been hurting him over the last month. He saw pain management 3 weeks ago and had bilateral trigger point injections which provided no relief whatsoever. He states that he has been having some pain in his right wrist that interferes with him doing pushups. He denies any other joint pain or swelling Initial history: This is a 48-year-old male who presents for evaluation of multiple joint pain and positive rheumatoid factor. Stated that the condition started about 3 years ago when he developed an infectious mononucleosis infection. Around that time he was having multiple joint pain including his knees, elbows. Told that he had high levels of inflammation. A few months later he was diagnosed with a CMP infection and was told that he had similar symptoms. He was also treated for Lyme disease. Does Not recall being evaluated by [facility]. States that he has had numerous moles of treatment such as physical therapy, chiropractor, acupuncture. He was evaluated by pain management and had facet injections as well as trigger point injections. States that some of the injections did help. States that he would have different courses of steroids which help transiently. States that he was diagnosed with a corneal condition and has done numerous surya geries for his corneas. Does not recall ever being diagnosed with uveitis or iritis. His brother and mother both have Crohn's disease. Patient had a colonoscopy in 2021 which did not show colitis. Most recently he was started on a steroid taper by his PCP starting at 6 tabs daily. Currently he is on 2 tabs daily. The majority of his pain is in both is elbows, worse on the right. The pain ra diates down his right hand and wrist. States that 2 years ago he fell and broke his right elbow and had right elbow surgery to clean out the chipped off bone States that his elbow pain is unrelated to that surgery. He also has diffuse back pain and stiffness. Denies any fevers or weight loss. Previously patient was doing different exercises such as volleyball, basketball and power lifting. Over the last 3 years he has not been able to do any of that. Denies any history of STDs or genital infections. He was recently evaluated at [facility] 3 weeks ago and was told that he has fibromyalgia [facility] Medical History Sleep pattern disturbance History of COVID-19 Lactose intolerance Elevated cholesterol Surgical History Hx of colonoscopy Family History Brother Crohn disease Mother Crohn disease Social History Household Members Other:: single Housing: House Alcohol intake: current Alcohol intake frequency: a few times a week Patient Tobacco Use Status: Never used Tobacco Current occupational status: employed Current occupation: IT[employer] Review of Systems [facility] Reports back pain and Reports arthralgias Physical Exam Vital Signs: Last Vital Signs Pulse 88 09/03/24 16:00 BP 142/100 H 09/03/24 16:00 Pulse Ox 98 09/03/24 16:00 Oxygen Delivery Method Room Air 09/03/24 16:00 BMI result Body Mass Index 35.5 Const General: cooperative, healthy appearing and comfortable Nutritional Appearance: obese Orientation/consciousness: patient oriented x3 Limitations: no limitations HEENT Head: Yes normocephalic and Yes atraumatic Mouth: moist mucous membranes Resp Effort & Inspection: normal respiratory effort and able to speak in complete sentences Cardio Rate: regular rate Rhythm: regular rhythm Skin General skin exam: no rashes or lesions noted Neuro General: patient oriented x3 Extrem Other: Minimal right wrist tenderness to palpation but no swelling or pain with full flexion-extension No active synovitis both hands and wrists 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 No elbow swelling or warmth or pain with flexion-extension bilaterally Negative resisted wrist extension test bilaterally today No tenderness to palpation of the common extensor origin at the lateral epicondyle bilaterally Normal range of motion of shoulders Negative rotator cuff provocative maneuvers bilaterally and negative Speed's test bilaterally No nail pitting Normal nailfold capillaroscopy Normal range of motion of shoulders without pain Negative rotator cuff provocative maneuvers bilaterally No knee swelling or tenderness bilaterally No ankle swelling or tenderness bilaterally Bilateral lower lumbar paraspinal muscle tenderness No buttock tenderness to palpation bilaterally Wicho test 10-15 cm Normal lateral flexion test Almost normal range of motion of neck Assessment & Plan Assessment & Plan (1) Seropositive rheumatoid arthritis: Comment: +RF -ve CCP dx 12/2023 Adalimumab 12/2023 effective Code(s): M05.9 - Rheumatoid arthritis with rheumatoid factor, unspecified Category: Medical Plan: This is a 49-year-old male who presents for evaluation of 3 year history of diffuse joint pain including back, elbows, knees.? Initial labs showed positive rheumatoid factor.? Positive family history of Crohn's colitis.? Colonoscopy in 2021 was negative for inflammatory bowel disease.? On initial exam he had multiple tender and swollen joints. He had bilateral elbow joint effusion on exam. Additional set of labs showed positive HLA B27 Clinical picture consistent with new onset inflammatory arthritis I think despite patient has positive rheumatoid factor clinically it is more consistent with a seronegative spondyloarthropathy. On exam patient is doing much better since adalimumab was started there is no active peripheral inflammatory arthritis on exam. His main problem is his low back pain which I believe is degenerative in nature. He has been seen by Pain Management multiple times over the years and had different procedures without any significant relief. I Suggested evaluation by a spine surgeon Continue with adalimumab 40 mg every other week Labs before next visit in 6 months (2) High risk medication use: Code(s): Z79.899 - Other terminal block assembler (current) drug therapy Category: Medical Plan: Side effects of adalimumab were discussed with the patient in detail including increased risk of infection, demyelinating disease, reactivation of latent TB, possible increased risk of solid and skin tumors, injection site reactions. Patient fully aware. Advised patient to seek medical care RAKEL if patient has an inf ection and advised patient to stop the medication until the infection is resolved. (3) Transaminitis: Code(s): R74.01 - Elevation of levels of liver transaminase levels Category: Medical Plan: Labs show significant transaminitis. Patient consumes at least 5 drinks on Sunday and Sunday. Advised patient to substantially cut down on drinking Plan I spent 29 minutes reviewing patient's chart, evaluating patient, ordering diagnostic workup, counseling patient and documenting in the chart Orders: Orders Complete Blood Count Auto Diff 6 Months M05.9 - Rheumatoid arthritis with rheumatoid factor, unspecified, Z79.899 - Other [facility] (current[facility] drug therapy Comprehensive Met. Panel 6 Months M05.9 - Rheumatoid arthritis with rheumatoid factor, unspecified, Z79.899 - Other [facility] drug therapy C Reactive Protein 6 Months M05.9 - Rheumatoid arthritis with rheumatoid factor, unspecified, Z79.899 - Other terminal block assembler (current) drug therapy Erythrocyte Sedimentation Rate 6 Months M05.9 - Rheumatoid arthritis with rheumatoid factor, unspecified, Z79.899 - Other [facility] drug therapy Medications: Refilled Hyrimoz(CF) Pen (adalimumab-adaz) 40 mg (0.4 mL) subcut Q2W 2 mL 5RF NS Coding Level of Care Code Est Pt Level 4 (24251) Complex EM visit Add On G2211 Diagnoses Seropositive rheumatoid arthritis M05.9 High risk medication use Z79.899 Transaminitis R74.01
[2024-09-03 16:00] VITALS: BP 142/100; PULSE 88; O2SAT 98; BMI 35.5
== END 2024-09-03 16:23 | disposition home or self-care (01) ==
PROVIDERS: PCP Registered Nurse; Visit Provider Student in an Organized Health Care Education/Training Program
DX: M05.79 Rheumatoid arthritis with rheumatoid factor of multiple sites without organ or systems involvement (principal); Z79.899 Other long term (current) drug therapy; R74.01 Elevation of levels of liver transaminase levels
CPT/HCPCS: 99214

== ENCOUNTER → 2024-09-03 15:53 | Outpatient (BNVA) | payer OTHER, SELFPAY | PROVIDERS: PCP Registered Nurse; Visit Provider Student in an Organized Health Care Education/Training Program ==

== ENCOUNTER 2025-02-05 07:52 | Outpatient (REF) | payer OTHER, SELFPAY ==
--- NOTE | ~2025-02-05 | US_ITS ---
EXAMINATION: US COMPLETE ABDOMEN WITH LIVER ELASTOGRAPHY CLINICAL INFORMATION: Elevated LFTs. COMPARISON: None available. TECHNIQUE: Real-time imaging of the abdominal viscera. Noninvasive ultrasound liver fibrosis assessment is performed using Maty ElastPQ point quantification shear wave elastography (pSWE) with a C5-2 MHz transducer. Multiple elastography samples are obtained. FINDINGS: PANCREAS: The visualized pancreatic head and body are normal in appearance. The remainder of the pancreas is obscured from visualization by the overlying bowel gas. ABDOMINAL AORTA: No aortic aneurysm is seen. INFERIOR VENA CAVA: Visualized portions are normal. LIVER: The liver is normal in size with diffusely increased hepatic attenuation. No focal lesion. No intra or extrahepatic biliary dilatation present. The right lobe measures 15.7 cm in length. The left lobe measures 10.1 cm in length. Portal flow is towards the liver (hepatopetal). Shear wave liver elastography median stiffness is 1.77 m/s (reference: normal median stiffness is 1.3 m/s or less). IQR/median stiffness to assess sampling precision is 0.15 (reference: good quality data set is IQR/median stiffness of 0.15 or less). GALLBLADDER: The gallbladder is physiologically distended without evidence of stones, sludge, polyps, wall thickening or pericholecystic fluid. COMMON BILE DUCT: Normal in caliber measuring 0.2 cm in diameter. RIGHT KIDNEY: No hydronephrosis. No renal calculi or focal parenchymal lesions. The kidney measures 12.0 cm in maximum dimension. LEFT KIDNEY: No hydronephrosis. No renal calculi or focal parenchymal lesions. The kidney measures 11.9 cm in maximum dimension. SPLEEN: Unremarkable. The spleen measures 11.3 cm in maximum dimension. FREE FLUID: None seen. US/US abdomen comp w elastography IMPRESSION: 1. Diffusely increased hepatic echogenicity without focal hepatic lesion identified. No intra or extrahepatic biliary dilatation. 2. Liver elastography: Measurements are suggestive of compensated advanced chroniic liver disease but need further test for confirmation. 3. Normal gallbladder. 4. The remainder of the examination is normal. REFERENCE: Society of Radiologists in Ultrasound Liver Stiffness Thresholds (2020): LIVER STIFFNESS THRESHOLDS: *Liver Stiffness equal or less than 1.3 m/s: High probability of being normal. *Liver Stiffness less than 1.7 m/s: In the absence of other known clinical signs, rules out compensated advanced chronic liver disease. *Liver Stiffness 1.7-2.1 m/s: Suggestive of compensated advanced chronic liver disease but need further test for confirmation. *Liver Stiffness over 2.1 m/s: Rules in compensated advanced chronic liver disease. *Liver Stiffness over 2.4 m/s: Suggestive of clinically significant portal hypertension. QUALITY OF DATA SET: *IQR/Median value equal or less than 0.15 implies a quality data set. *IQR/Median value over 0.15 implies a poor quality data set. SIGNIFICANT CHANGE FROM PRIOR EXAM: Significant change if liver stiffness measurement is 10% or greater from prior exam. OTHER CONSIDERATIONS: The stage of liver fibrosis may be overestimated in the setting of acute hepatitis, liver inflammation, elevated liver function tests, hepatic vascular congestion, obstructive cholestasis, non-fasting state, and infiltrative diseases such as amyloidosis and lymphoma. In some patients with NAFLD, the liver stiffness thresholds for compensated advanced chronic liver disease may be lower. In causes other than viral hepatitis and NAFLD, liver stiffness thresholds are not well established. Electronically signed by: Jordan Camilo MD 02/05/2025 10:04 AM EDT
--- OUTSIDE RECORDS SUMMARY | 2025-02-05 07:54 | XMS_ITS | Clinical Summary ---
Author Organization [facility] Address [address] [place] [address] Care Team Providers Care Supervisor Opening And Picking Name Role Phone Raisa Winslow MD Primary Care Provider [phone] Albertina Herrera RN Unavailable [phone] Ninoska Louis HOSPICE MASSAGE THERAPIST Unavailable [phone] Allergies No known active allergies Medications No known medications Family History Medical History Relation Name Comments Allergic rhinitis Brother Allergic rhinitis Father Relation Name Status Comments Brother Father Social History Tobacco Use Types Packs/Day Years Used Date Smoking Tobacco: Never Smokeless Tobacco: Never Sex and Gender Information Value Date Recorded Sex Assigned at Not on file Legal Sex Male 3:55 PM EDT Gender Identity Not on file Sexual Orientation Not on file Occupation Industry Job Start Date Job End Date [employer] Not on file Not on file Not on file Last Filed Vital Signs Vital Sign Reading Time Taken Comments Blood Pressure 140/100 12/14/2017 11:00 AM EDT Pulse - - Temperature - - Respiratory Rate - - Oxygen Saturation - - Inhaled Oxygen Concentration - - Weight 91.5 kg (201 lb 12.8 oz) 018 11:00 AM EDT Height 170.2 cm (5' 7 ) 12/14/2017 11:0 0 AM EDT Body Mass Index 31.61 12/14/2017 11:00 AM EDT Plan of Treatment Health Maintenance Due Date Last Done Comments Hepatitis C Virus Screening 1975 HIV Screening 02/22/1988 DTaP/Tdap/Td Vaccines (1 - Tdap) 1994 Hepatitis B Vaccines (1 of 3 - 19+ 3-dose series) 1994 Colonoscopy 02/22/2020 COVID-19 Vaccine ( 2023-2 5 season) 2024 Influenza Vaccine 03/20/2025 Pneumococcal Vaccine: Pediat vadim (0-5 Years) and At-Risk Patients (6 to 49 Years) Aged Out No longer eligible b ased on patient's age to complete this topic Insurance O [id number] [place], [place] [address]O O Care Teams Supervisor Opening And Picking Relationship Specialty Start Date End Date Raisa Winslow MD PCP - General Internal Medicine 12/24/20 Albertina Herrera RN [address] [id number] Registered Nurse Hepatology 12/31/20 Ninoska Louis APRN [address] [address] Nurse Practitioner Hepatology 12/31/20
== END 2025-02-05 07:53 | disposition home or self-care (01) ==
LOC: HO.US 07:52
PROVIDERS: PCP Registered Nurse; Visit Provider Student in an Organized Health Care Education/Training Program
DX: R74.01 Elevation of levels of liver transaminase levels (principal)
CPT/HCPCS: 76700; 76981

== ENCOUNTER → 2025-02-05 07:53 | Outpatient (BNV) | payer OTHER, SELFPAY | PROVIDERS: PCP Registered Nurse; Visit Provider Radiology Diagnostic Radiology | DX: K76.0 Fatty (change of) liver, not elsewhere classified (principal) | CPT/HCPCS: 76700 ==

== ENCOUNTER 2025-03-11 15:48 | Outpatient (AMB) | payer OTHER, SELFPAY ==
[2025-03-11 15:53] VITALS: BP 132/72; PULSE 72; O2SAT 97; BMI 33.5
--- NOTE | 2025-03-11 15:53 | MHC.OFFVIS ---
Vital Signs 03/11/25 15:53 Height 5 ft 7 in Weight 214 lb BMI 33.5 BP 132/72 Blood Pressure Location Lt brachial Position Sitting Pulse 72 Pulse Source Pulse Oximeter Pulse Oximetry (%) 97 Oxygen Delivery Method Room Air Intake Visit Reasons: RA Intake Note: Patient presents for follow up on RA. Allergies No Known Allergies Allergy (Verified 03/11/25 15:56) Medication List - Last Reconciled 03/11/25 by Kika Maloney MD Hyrimoz(CF) Pen (adalimumab-adaz) 40 mg (0.4 mL) subcut Q2W NS multivitamin 1 tab PO DAILY thiamine HCl (vitamin B1) (Vitamin B-1) 100 mg PO DAILY ubidecarenone-omega 3-vit E 25-150-200 mg-mg-unit (Co I-10-Nrwukws E-Fish Oil) 1 cap PO DAILY HPI Comments Details: Patient is a 50-year-old male with seropositive rheumatoid arthritis here today for follow up Interval History: Patient last seen 09/03/[address] Hong - On Adalimumab 40mg SC every 2 weeks - C/o back pain. F/u with pain management s/p trigger point injections with no relief - also c/o right wrist pain Today - Doing well overall - Received facet joint injections/nerve blocks about 6 months ago which has been very effective - Was able to go back to the gym and do activities that were previously ltd - GI appt in March Rheumatologic History: Seropositive RA vs Seronegative Spondyloarthropathy +RF -ve CCP dx 12/2023 Adalimumab 12/2023 effective Initial history: This is a 48-year-old male who presents for evaluation of multiple joint pain and positive rheumatoid factor. Stated that the condition started about 3 years ago when he developed an infectious mononucleosis infection. Around that time he was having multiple joint pain including his knees, elbows. Told that he had high levels of inflammation. A few months later he was diagnosed with a CMP infection and was told that he had similar symptoms. He was also treated for Lyme disease. Does Not recall being evaluated by Integrative Medicine. States that he has had numerous moles of treatment such as physical therapy, chiropractor, acupuncture. He was evaluated by pain management and had facet injections as well as trigger point injections. States that some of the injections did help. States that he would have different courses of steroids which help transiently. States that he was diagnosed with a corneal condition and has done numerous surgeries for his corneas. Does not recall ever being diagnosed with uveitis or iritis. His brother and mother both have Crohn's disease. Patient had a colonoscopy in 2021 which did not show colitis. Most recently he was started on a steroid taper by his PCP starting at 6 tabs daily. Currently he is on 2 tabs daily. The majority of his pain is in both is elbows, worse on the right. The pain radiates down his right hand and wrist. States that 2 years ago he fell and broke his right elbow and had right elbow surgery to clean out the chipped off bone States that his elbow pain is unrelated to that surgery. He also has diffuse back pain and stiffness. Denies any fevers or weight loss. Previously patient was doing different exercises such as volleyball, basketball and power lifting. Over the last 3 years he has not been able to do any of that. Denies any history of STDs or genital infections. He was recently evaluated at [facility] 3 weeks ago and was told that he has fibromyalgia Current Rheumatology Medication(s): Adalimumab-adaz 40mg every 2 weeks [facility] Medical History Sleep pattern disturbance History of COVID-19 Lactose intolerance Elevated cholesterol Surgical History Hx of colonoscopy Family History Brother Crohn disease Mother Crohn disease Social History Household Members Other:: single Housing: House Alcohol intake: current Alcohol intake frequency: a few times a week Patient Tobacco Use Status: Never used Tobacco Current occupational status: employed Current occupation: [employer] Review of Systems Const Details: Review of Systems Constitutional: Denies fever, chills, weight loss ENT: Denies vision changes, eye pain or eye redness, dental caries, dry mouth GI: Denies nausea, vomiting, diarrhea, abdominal pain, change in BM Pulm: Denies SOB, CLEMENS, hemoptysis, wheezing Cards: Denies chest pain, palpitations Skin: Denies Raynaud's, rash, nail changes, photosensitivity, OPERATIONS RESEARCH DIRECTOR: Denies headaches, weakness, paresthesias, recurrent falls MSK: as per HPI All other systems reviewed and are unremarkable except noted above Physical Exam Exam Exam: Vital signs reviewed Physical Examination CONSTITUITIONAL Patient alert and cooperative. Well appearing and in no apparent painful distress HEENT Conjunctiva and sclera clear. No lymphadenopathy. CHEST/RESPIRATORY SYSTEM Normal respiratory effort and able to speak in complete sentences. Clear to auscultation bilaterally. No crackles, rales, rhonchi, wheezes heard. CARDIAC SYSTEM Regular rate and rhythm. S1 and S2 heard no murmurs. Radial pulses intact bilaterally MSK Hands Right Hand: Able to make a fist. No swelling or tenderness to palpation of these joints. No deformities noted. Left Hand: Able to make a fist. No swelling or tenderness to palpation of these joints. No deformities noted. Wrists Right Wrist: Full ROM. 70 degrees of wrist flexion, 80 degrees of wrist extension. No swelling or TTP Left Wrist: Full ROM. 70 degrees of wrist flexion, 80 degrees of wrist extension. No swelling or TTP Elbows Right Elbow: Full ROM. No swelling or TTP. No TTP of the medial and lateral epicondyles Left Elbow: Full ROM. No swelling or TTP. No TTP of the medial and lateral epicondyles Shoulders Right shoulder: Full ROM. No swelling noted. No TTP of the AC joint, subacromial bursa or posterior shoulder Left shoulder: Full ROM. No swelling noted. No TTP of the AC joint, subacromial bursa or posterior shoulder Hips Right hip: Good ROM. No pain elicited with hip flexion/internal rotation/external rotation Left hip: Good ROM. No pain elicited with hip flexion/internal rotation/external rotation Hip bursa: No tenderness to palpation bilaterally Knees Right knee: Full ROM. No swelling noted. No TTP of the knee joint lie or pes anserine bursa Left knee: Full ROM. No swelling noted. No TTP of the knee joint lie or pes anserine bursa. Ankles Right ankle: Good ankle dorsiflexion and plantar flexion. No swelling. No TTP of the ankle joint Left ankle: Good ankle dorsiflexion and plantar flexion. No swelling. No TTP of the ankle joint Feet Right foot: Negative squeeze test Left foot: Negative squeeze test Tender points? No tenderness to palpation of the bilateral trapezius, supraspinatus, anterior costochondral junctions, bilateral suboccipital muscle insertions SKIN No rashes Vital Signs: Last Vital Signs Pulse 72 03/11/25 15:53 BP 132/72 03/11/25 15:53 Pulse Ox 97 03/11/25 15:53 Oxygen Delivery Method Room Air 03/11/25 15:53 BMI result Body Mass Index 33.5 Results Reviewed Results Reviewed: Laboratory Tests 09/02/24 02/27/25 13:23 [facility] WBC 7.5 7.6 RBC 5.54 5.41 Hgb 16.4 16.3 Hct 46.7 49.5 Plt Count 263 256 ESR 5 Sodium 140 141 Potassium 4.1 3.9 Chloride 106 106 Carbon Dioxide 29 26 BUN 21 H 18 Creatinine 1.14 0.93 AST 41 H 37 H ALT 82 H 75 H C-Reactive Protein 0.54 H Laboratory Tests 01/07/24 09:33 HLA-B27 Positive A Laboratory Tests 01/07/24 09:33 Hepatitis A IgM Ab Nonreactive Hep Bs Antigen Negative Hep Bs Antibody NONREACTIVE Hep B Core Total Ab Nonreactive Hepatitis C Ab (EIA) Nonreactive TB Test (T-Spot) Com Negative XR C spine, L spine, SI joints, Elbows, Knees, Hands and Wrists 11/2023 FINDINGS: Left Hand/Wrist: Moderate degenerative changes in the first carpometacarpal joint with joint space narrowing and hypertrophic change. Alignment preserved. No acute displaced fracture appreciated. Bone mineralization is normal. Right Hand/Wrist: Moderate degenerative changes in the first carpometacarpal joint with joint space narrowing and hypertrophic change. Alignment preserved. Bone mineralization is normal. Sclerotic focus overlying the distal tuft of the right thumb. Cervical Spine: Bilateral facet hypertrophy with neural foraminal encroachment at C5-C6. Cervical spondylosis with moderate loss of disc space height at C5-C6. Left Knee: No significant joint effusion. Anterior superior patellar spur. Mild narrowing of the medial compartment. Tiny posterior patellar spurring. Right Knee: No significant joint effusion. Anterior superior patellar spur. Mild narrowing of the medial compartment. Left Elbow: Elbow joint effusion. Ossicle along the posterior aspect of an olecranon spur, possibly degenerative versus avulsion fracture of indeterminate age. Prominent 1 cm ossicle/calcification in the soft tissues adjacent to the medial epicondyle/distal humerus of indeterminate age and etiology. Faint ossific/calcific densities in the humeral radial articulation and adjacent soft tissues. Right Elbow: Prominent olecranon spur with thickening of the overlying soft tissues. Possible joint effusion is difficult to confirm. Alignment maintained. Mild spurring along the radial head. Lumbar Spine: Facet arthritis in the lower lumbar spine. Mild step-off between the segments of the distal aspect of the coccyx and remainder of the sacrum and coccyx of indeterminate age and etiology. Slight rightward curvature of the lumbar spine. Mild multilevel lumbar spondylosis. Bilateral Sacroiliac Joints: Mild degenerative changes in the bilateral sacroiliac joints. Degenerative changes on limited views of the bilateral hips. Pubic symphysis is maintained. Surgical clips overlie the scrotal region on the right. IMPRESSION: 1. Moderate degenerative changes in the bilateral first carpometacarpal joints. 2. Cervical spondylosis with moderate loss of disc space height at C5-C6. 3. Mild degenerative changes in the bilateral knees. 4. Left elbow joint effusion. Ossicle along the posterior aspect of an olecranon spur, possibly degenerative versus avulsion fracture of indeterminate age. Prominent 1 cm ossicle/calcification in the soft tissues adjacent to the medial epicondyle/distal humerus of indeterminate age and etiology. 5. Prominent olecranon spur with thickening of the overlying soft tissues. Possible joint effusion is difficult to confirm. 6. Mild step-off between the segments of the distal aspect of the coccyx and remainder of the sacrum and coccyx of indeterminate age and etiology. 7. Mild degenerative changes in the bilateral sacroiliac joints. Degenerative changes on limited views of the bilateral hips. US Liver with elastography 01/2025 FINDINGS: PANCREAS: The visualized pancreatic head and body are normal in appearance. The remainder of the pancreas is obscured from visualization by the overlying bowel gas. ABDOMINAL AORTA: No aortic aneurysm is seen. INFERIOR VENA CAVA: Visualized portions are normal. LIVER: The liver is normal in size with diffusely increased hepatic attenuation. No focal lesion. No intra or extrahepatic biliary dilatation present. The right lobe measures 15.7 cm in length. The left lobe measures 10.1 cm in length. Portal flow is towards the liver (hepatopetal). Shear wave liver elastography median stiffness is 1.77 m/s (reference: normal median stiffness is 1.3 m/s or less). IQR/median stiffness to assess sampling precision is 0.15 (reference: good quality data set is IQR/median stiffness of 0.15 or less). GALLBLADDER: The gallbladder is physiologically distended without evidence of stones, sludge, polyps, wall thickening or pericholecystic fluid. COMMON BILE DUCT: Normal in caliber measuring 0.2 cm in diameter. RIGHT KIDNEY: No hydronephrosis. No renal calculi or focal parenchymal lesions. The kidney measures 12.0 cm in maximum dimension. LEFT KIDNEY: No hydronephrosis. No renal calculi or focal parenchymal lesions. The kidney measures 11.9 cm in maximum dimension. SPLEEN: Unremarkable. The spleen measures 11.3 cm in maximum dimension. FREE FLUID: None seen. IMPRESSION: 1. Diffusely increased hepatic echogenicity without focal hepatic lesion identified. No intra or extrahepatic biliary dilatation. 2. Liver elastography: Measurements are suggestive of compensated advanced chroniic liver disease but need further test for confirmation. 3. Normal gallbladder. 4. The remainder of the examination is normal. Assessment & Plan Assessment & Plan (1) Seropositive rheumatoid arthritis: Comment: +RF -ve CCP dx 12/2023 Adalimumab 12/2023 effective Code(s): M05.9 - Rheumatoid arthritis with rheumatoid factor, unspecified Category: Medical Plan: #Seropositive RA Patient is a 50-year-old male with seropositive rheumatoid arthritis versus seronegative spondyloarthritis here today for follow up Patient doing well on Humira monotherapy with no active synovitis on examination. His current back pains are related to degenerative/mechanical disease for which he follows up with pain management for Plan - Humira 40mg SC every 2 weeks - RTC 6 months - Labs before visit: CBC, CMP, ESR, CRP, Hepatitis panel and T spot (2) Transaminitis: Code(s): R74.01 - Elevation of levels of liver transaminase levels Category: Medical Plan: #Transaminitis Patient with transaminitis and liver elastography showing compensated cirrhosis. Has appointment with GI in march AST/ALT trended down (3) Encounter for monitoring of adalimumab therapy: Code(s): Z51.81 - Encounter for therapeutic drug level monitoring; Z79.620 - terminal makeup operator (current) use of immunosuppressive biologic Plan: #Long-term Use of TNF Inhibitors: Adalimumab Discussed with the patient the benefits and risks of TNF inhibitors for the management of the rheumatic condition Benefits include reduce pain, maintenance of remission and reduction of flares as well as progression of the disease Risks include injection sites/infusion reactions, serious infections (such as bacterial infections, opportunistic infections), malignancy, delaminating syndromes, autoimmune phenomena, CHF exacerbations, palmar plantar psoriasis and cytopenias Recommended rotating injection sites, and holding medication during and for up to 1 week after resolution of a febrile illness or open skin wound Plan I spent 20 minutes reviewing the record and labs, taking a history, examining the patient, discussing the treatment plan, ordering diagnostic work up and documenting in the medical record Coding Level of Care Code Est Pt Level 3 (28396) Complex EM visit Add On G2211 Diagnoses Seropositive rheumatoid arthritis M05.9 Transaminitis R74.01 Encounter for monitoring of adalimumab therapy Z51.81; Z79.620
--- OUTSIDE RECORDS SUMMARY | 2025-03-11 15:53 | XMS_ITS | Clinical Summary ---
Author Organization [facility] Address [address] [place] [address] Care Team Providers Care Car Checker Name Role Phone Reji Montoya MD Primary Care Provider [phone] Reji Montoya MD Unavailable [phone] Allergies Active Allergy Reactions Criticality Noted Date Comments Food 11/11/2020 Medications Acetaminophen (TYLENOL) 500 MG tablet TAKE 1 TABLET EVERY 4 TO 6 HOURS NEEDED. 0 11/11/2020 Active Multiple Vitamins-Minera ls (Multi For Him) Cap TAKE DIRECTED. 0 11/11/2020 Active Tobramycin-dexA METHasone (TOBRADEX) ophthalmic solution INSTILL 1 DROP IN LEFT EYE FOUR TIMES DAILY 5 0 07/01/2021 Active traZODone HCl (DESYREL) 50 MG tablet TAKE 0.5 TABLET Bedtime 15 0 09/14/2021 Active Active Problems Problem Noted Date Diagnosed Date Skin tag 12/28/2021 Encounter for immunization 12/28/2021 Skin lesion of face 12/28/2021 Vitamin D deficiency 12/28/2021 Elbow pain 12/28/2021 Maculopapular rash, localized 05/24/2021 Insomnia 05/24/2021 Grieving 05/24/2021 Hyperlipidemia 02/28/2021 Abnormal liver function test 11/22/2020 Arthralgia of multiple sites 11/11/2020 Cervical radiculopathy, chronic 11/11/2020 Headache, temporal 11/11/2020 History of viral meningitis 11/11/2020 Neck pain 11/11/2020 Lactose intolerance 11/11/2020 Plantar fasciitis 11/11/2020 Corneal erosion 11/11/2020 History of CMV 11/11/2020 Elevated blood pressure reading 11/11/2020 Immunizations Immunization Administration Dates Next Due COVID-19, mRNA (Pfizer Pre F all 2022) Monovalent, 30 mcg/0.3 ml 12/12/2020 Covid-19, mRNA (Pfizer Pre F all 2022) Monovalent, 30 mcg/0.3 ml tapna-sucrose (12+) 07/31/2021,01/02/2021 Td (adult), adsorbed 11/12/2015 Family History Medical History Relation Name Comments Cancer - Prostate Father prostate c ancer : Father Dementia Mother Alzheimer's dis ease : Mother;diagnosed in 2019 Relation Name Status Comments Father Mother Social History Tobacco Use Types Packs/Day Years Used Date Smoking Tobacco: Never Assessed Comments:Smoking Status:No c urrent tobacco use Sex and Gender Information Value Date Recorded Sex Assigned at Not on file Legal Sex Male 4:15 PM EDT Gender Identity Not on file Sexual Orientation Not on file Last Filed Vital Signs Vital Sign Reading Time Taken Comments Blood Pressure 118/80 12/28/2021 4:39 PM EDT Pulse 80 12/28/2021 4:39 PM EDT Temperature 35.9 C (96.7 F) 12/28/2021 4:39 PM EDT Respiratory Rate 16 12/28/2021 4:39 PM EDT Oxygen Saturation 98% 12/28/2021 4:39 PM EDT Inhaled Oxygen Concentration - - Weight 96.6 kg (213 lb 0.2 oz) 12/28/2021 4:39 P M EDT Height 170.2 cm (5' 7 ) 12/28/2021 4:39 PM EDT Body Mass Index 33.36 12/28/2021 4:39 PM EDT Plan of Treatment Health Maintenance Due Date Last Done Comments Hep B (1 of 3 - 19+ 3-dose series) 1994 DTaP/Tdap/Td (1 - Tdap) 11/13/2015 11/12/2015 Colon Cancer Screening 02/22/2020 COVID-19 Vaccine (2023-2 5 season) 2024 07/31/2021, 01/02/2021, 12/12/2020 Pneumococcal 50+ years (1 of 1 - PCV) 2025 Zoster (Shingrix) (1 of 2) 2025 Influenza (#1) 2025 Hepatitis C Screening Completed 11/19/2020 LDL Cholesterol Discontinued 11/19/2020 Physical Discontinued 12/28/2021, 11/11/2020 HPV Vaccine Aged Out No longer eligi ble based on patient's age to complete this topic Hep A Aged Out No longer eligi ble based on patient's age to complete this topic Hib Aged Out No longer eligi ble based on patient's age to complete this topic Meningococcal ACWY Aged Out No longer eligible based on patient's age to complete this topic Procedures Procedure Name Priority Date/Time Associated Diagnosis Comments HEPATITIS C ANTIBODY W/ REFLEX TO RNA, QN, RT PCR Routine 11/19/2020 11:49 AM EDT LIPID PANEL, PLASMA Routine 11/19/2020 1 1:49 AM EDT from Last 3 Months or Most Recently Relevant to Health Maintenance Results * HEPATITIS C ANTIBODY W/ REFLEX TO RNA, QN, RT PCR (11/19/2020 11:49 AM EDT) Hepatitis C virus Ab NON-REACT [place] NON-REACT [place] PHCT CONVERSIONS Hepatitis C virus Ab 0.05 <1.00 PHCT CONVERSIONS Comment:Antibodies to HCV we re not detected. NOTE: This does not entirely exclude the possibility of exposure to HCV since antibody production may lag infection. If there is a high suspicion of HCV infection HCV RNA testing may be of diagnostic value. 11/19/2020 11:4 9 AM EDT Narrative PHCT CONVERSIONS - 11/19/2020 10:39 PM EDT Testing Performed at: [facility], [address] [place] [address], , Senior Electronics Design Engineer: Juliane Preston MD CL#[id number] 1:38PM by Raisa Winslow: pt aware. will order abdominal ultrasound and repeat labs. advised to avoid alcohol, tylenol and OTC supplements. Raisa Winslow LABORATORY Final Result PHCT CONVERSIONS * (ABNORMAL) LIPID PANEL, PLASMA (11/19/2020 11:49 AM EDT) Cholesterol 332(H) 0 - 199 mg/dL PHCT CONVERSIONS Triglyceride 246(H) 0 - 150 mg/dL PH[facility] CONVERSIONS VLDL Cholesterol 49(H) 5 - 40 mg/dL PH[facility] CONVERSIONS HDL Cholesterol 46 40 - 80 mg/dL PH[facility] CONVERSIONS LDL Cholesterol 237(H) 0 - 100 mg/dL PHCT CONVERSIONS Cholesterol Non-HDL 286(H) 0 - 130 mg/dl PHCT CONVERSIONS CHOL/HDL Ratio 7.3 PHCT CONVERSIONS 11/19/2020 11:4 9 AM EDT Narrative PHCT CONVERSIONS - 11/19/2020 11:19 PM EDT FASTING: YES Testing Performed at: [facility], [address] [place] [address], , Senior Electronics Design Engineer: Juliane Preston MD CL#[id number] 1:38PM by Raisa Winslow: pt aware. will order abdominal ultrasound and repeat labs. advised to avoid alcohol, tylenol and OTC supplements. Raisa Winslow LABORATORY Final Result PHCT CONVERSIONS from Last 3 Months or Most Recently Relevant to Health Maintenance Care Teams Car Checker Relationship Specialty Start Date End Date Reji Montoya MD [address] [facility] [address] [place] [id number] PCP - General 03/26/23 Reji Montoya MD [address] [place] [address] [address] [place] [address] PCP - Backup PCP Internal Medicine 09/20/23
--- OUTSIDE RECORDS SUMMARY | 2025-03-11 15:53 | XMS_ITS | Data Portability ---
Author Organization [place] [facility] AONE [facility] Address [address] [place] [address] Assessment Encounter Date Assessment Date Assessment LastModified by Organization Details LastModified Time 01/22/2024 01/22/2024 Herberth has an acute gastrocs tear with medial gastrocs hematoma. We discussed his difficulty with mobility. He was offered crutches which were fit to his size. By his description, the crutches he had were much too tall. We discussed a cam boot which he said he tried already and found it too uncomfortable. He still felt appropriate sized crutches because too much pain in his ribs shoulders and hands. He was given a prescription for physical therapy in hopes of aiding in his recovery. He had discussed starting aspirin by his primary care provider later this week. He will follow-up in 3 weeks to assess his progress, sooner for any complications. All questions answered to his satisfaction. Patient was seen and evaluated by Junior Lund PA-C in indirect conjunction with Dr. Huerta. The provider agrees with the history, physical examination, recommended tests/diagnostic imaging, and treatment plan. [email or web address] Not available 01/22/2024 14:00:05 02/15/2024 02/15/2024 Herberth has made continued improvement since his last visit with physical therapy and activity modification. He will continue with therapy since it is improving. He will follow-up in approximately 1 month to assess his progress, sooner for any complications. Patient was seen and evaluated by Junior Lund PA-C in indirect conjunction with Dr. Huerta. The provider agrees with the history, physical examination, recommended tests/diagnostic imaging, and treatment plan. 02/15/2024 MYCHAL: Herberth has an acute gastrocs tear with medial gastrocs hematoma. We discussed his difficulty with mobility. He was offered crutches which were fit to his size. By his description, the crutches he had were much too tall. We discussed a cam boot which he said he tried already and found it too uncomfortable. He still felt appropriate sized crutches because too much pain in his ribs shoulders and hands. He was given a prescription for physical therapy in hopes of aiding in his recovery. He had discussed starting aspirin by his primary care provider later this week. He will follow-up in 3 weeks to assess his progress, sooner for any complications. All questions answered to his satisfaction. [email or web address] Not available 02/15/2024 16:53:50 Plan of Treatment Reminders Order Date Submit Date Provider Last Modified By Organization Details Last Modified Time Details Appointments None recorded. Lab None recorded. Referral physical therapist referral - Frequency: 2 visits per week for 6 weeks Therapy: Evaluate and Treat Modalities: As needed Precautions - if any: Goals: ROM, HEP, Decrease Pain, Increase Strength and Increase Endurance. 2023 024 RANDAL Not available 11:31:55 Procedures None recorded. Surgeries None recorded. Imaging None recorded. Medication Orders None recorded. Patient TargetsNo targets recorded. Patient InstructionsNo instructions recorded. Reason for Referral Physical Therapist Referral for Rupture of gastrocnemius tendon Frequency: 2 visits per week for 6 weeksTherapy: Evaluate and TreatModalities:As neededPrecautions - if any:Goals: ROM, HEP, Decrease Pain, Increase Strength and Increase Endurance. Referring Physician: Junior Lund, Orthopedic Surgery, Encounter Date: 01/22/2024 Results Created Date Observation Date Name Description Value Unit Range Abnormal Flag Note LastModifiedBy Organization Detail LastModifiedTime 01/25/20 24 tamelai ng/layla dorsey tic resul t No observ ation record ed. [email or web address] Not Available 01/24 11:15:58 Result Notes None recorded. Problems Name Problem SNOMED Code Status Onset Date Resolution Date Notes Provider Name and Address Organization Details Recorded Time Rupture of gastrocnemius tendon 101944882 Active 2023 JUNIOR LUND PA-C [address], [place], [address], [facility] 13:53:55 Problem Notes None recorded. Procedures Surgical History Date Name Laterality Status Provider Name and Address Organization Details Recorded Time CT discogram with injection of contrast into intervertebral disc completed Neela Barnes [facility] 01/22/2024 13:48:40 Imaging Results None recorded. Procedure Notes None recorded. Medical Equipment None Reported. Allergies No known drug allergies Medications Name Sig Start Date Stop Date Status Note LastModified by Organization Details LastModified Time celecoxib 200 mg capsule TAKE 1 CAPSULE BY MOUTH TWICE DAILY AFTER MEALS active Not Available Not Available No t Available atorvastatin 40 mg tablet TAKE 1 TABLET BY MOUTH EVERY DAY active Not Available Not Available No t Available prednisone 10 mg tablet active Not Available Not Available No t Available tizanidine 2 mg tablet TAKE 1 TABLET BY MOUTH THREE TIMES DAILY NEEDED active Not Available Not Available No t Available azithromycin 250 mg tablet active Not Available Not Availabl e Not Available valacyclovir 1 gram tablet TAKE 1 TABLET BY MOUTH EVERY DAY active Not Available Not Available No t Available prednisone 20 mg tablet TAKE 2 TABLETS BY MOUTH EVERY DAY FOR 7 DAYS active Not Available Not Available No t Available penicillin V potassium 500 mg tablet TAKE 1 TABLET BY MOUTH TWICE DAILY FOR 10 DAYS active Not Available Not Available No t Available tramadol 50 mg tablet TAKE 2 TABLETS BY MOUTH THREE TIMES DAILY WITH 650 MG OF TYLENOL THREE TIMES DAILY NEEDED active Not Available Not Available No t Available doxycycline monohydrate 100 mg capsule TAKE 1 CAPSULE BY MOUTH EVERY 12 HOURS FOR 10 DAYS active Not Available Not Available No t Available gabapentin 300 mg capsule TAKE 1 CAPSULE BY MOUTH TWICE DAILY active Not Available Not Available No t Available naproxen 500 mg tablet TAKE 1 TABLET BY MOUTH EVERY 12 HOURS WITH FOOD OR MILK NEEDED active Not Available Not Available No t Available metaxalone 800 mg tablet TAKE ONE TABLET BY MOUTH THREE TIMES A DAY FOR 7 DAYS active Not Available Not Available No t Available bupropion HCl XL 300 mg 24 hr tablet, extended release TAKE 1 TABLET BY MOUTH EVERY DAY IN THE MORNING active Not Available Not Available No t Available bupropion HCl XL 150 mg 24 hr tablet, extended release TAKE 1 TABLET BY MOUTH EVERY DAY IN THE MORNING active Not Available Not Available No t Available Hyrimoz(CF) Pen 40 mg/0.4 mL subcutaneous pen injector active Not Available Not Available Not Available Vitals Date Recorded Body height Body mass index (BMI) Body weight Provider Name and Address Organization Details Last Updated DateTime 01/22/2024 170.18 cm 35.2 kg/m2 493387.28 g [facility] 01/22/2024 13:40:43 Date Recorded Body height Provider Name an d Address Organization Details Last Updated DateTime 02/15/2024 170.18 cm [facility] 02/15/2024 16:30:27 Social History Question Answer Notes LastModified by [employer] Details LastModified Time Tobacco Smoking Status Never Smoker [facility] 01/22/2024 13:46:31 Which Illicit Or Recreational Drugs Have You Used? Marijuana Information not available 01/22/2024 Sex: Unknown Functional Status Question Answer Note LastModified by [employer] Details LastModified Time How many times per week do you consume alcohol? 5-7 times per week Information not available 01/22/2024 Do you use any illicit or recreational drugs? Yes Information not available 01/22/2024 Do you or have you ever used any other forms of tobacco or nicotine? No Information not available 01/22/2024 What is your level of alcohol consumption? Moderate 12 drinks per week Information not available 01/22/2024 Mental Status None recorded. Family History Relationship Description Onset Age of this Age Resolved Age Notes LastModified by Organization Details LastModified Time Father Family history of malignant neoplasm Not available 2023 13:47:18 Father Hypercholest erolemia Not available 2023 13:47:30 Father Hypertensive disorder Not available 2023 13:47:42 Brother Hypercholest erolemia Not available 2023 13:47:30 Brother Hypertensive disorder Not available 2023 13:47:42 Medical History Condition Response Rheumatoid Arthritis Y Hypertension Y Past Encounters Encounter ID Performer Location Encounter Start Date Encounter Closed Date Diagnosis/Indication Diagnosis SNOMED-CT Code Diagnosis ICD10 Code Diagnosis [id number] [address] [facility] [place] [address] 01/22/2024 12:52:50 01/22/2024 14:02:11 Rupture of gastrocnemius tendon 418800562 S86.112A Additional diagnosis detail: Rupture of left gastrocnem ius tendon, initial encounter [id number] [facility] [address] [facility] [address] [place] [id number] 02/15/2024 15:03:56 02/15/2024 15:23:51 Rupture of gastrocnemius tendon [id number] S86.112A Additional diagnosis detail: Rupture of left gastrocnem ius tendon, initial encounter Health Concerns Section Related Observation LastModified by Organization Detai ls LastModified Time None Recorded Concern Status LastModified by Organization Details LastModified Time None Recorded Advance Directives Directive None Recorded Payers Insurance Date Sequence Insurance Name Policy Number Policy Cruz Covered Member ID Cruz Member ID Guarantor Name 03/14/2024 1 [facility] (PPO) [id number] Herberth Reyes [id number] Herberth Reyes Notes Date Note Type Note Provider Name and Address Organization Details Recorded Time 01/22/2024 text/html Patient is a 48-year-old male who presents today with acute calf pain. He was running after kids playing 10 days ago when he felt sudden pain in his calf. He felt a pop and was unable to walk without significant pain. He developed bruising in his posterior thigh. He was sent for an ultrasound on 01/18/2024. There is no DVT, but he did have a 3 x 11 x 2 cm hematoma what appeared to be a grade 2 or 3 gastrocs tear. He was sent for orthopedic urgent care consultation. He has difficulty with activity. 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 He tried crutches which do not fit. He unfortunate was recently diagnosed with rheumatoid arthritis and finds that the crutches were causing pain in his shoulders and hands. JUNIOR LUND PA-C [address], [place], [address], [place] [facility] 01/22/2024 14:01:31 02/15/2024 text/html Herberth returns today for follow-up of left gastrocs strain. He had an ultrasound demonstrating the tear with no evidence of DVT or Achilles involvement. He was sent for a trial of physical therapy. He reports having improvement daily. His calf pain is minimal although he does have a small lump in the anterior compartment which was not present initially. No numbness or tingling. No weakness. 01/22/2024 MYCHAL:Patient is a 48-year-old male who presents today with acute calf pain. He was running after kids playing 10 days ago when he felt sudden pain in his calf. He felt a pop and was unable to walk without significant pain. He developed bruising in his posterior thigh. He was sent for an ultrasound on 01/18/2024. There is no DVT, but he did have a 3 x 11 x 2 cm hematoma what appeared to be a grade 2 or 3 gastrocs tear. He was sent for orthopedic urgent care consultation. He has difficulty with activity. 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 He tried crutches which do not fit. He unfortunate was recently diagnosed with rheumatoid arthritis and finds that the crutches were causing pain in his shoulders and hands. JUNIOR LUND PA-C [address], [place], [address], [place] [facility] 02/15/2024 16:54:15
--- OUTSIDE RECORDS SUMMARY | 2025-03-11 15:53 | XMS_ITS | Clinical Summary ---
Author Organization [facility] Address [address] [place] [address] Care Team Providers Care Field Return Repairer Name Role Phone Rasia Winslow MD Primary Care Provider Albertina Herrera RN Unavailable Ninoska Louis NETWORK INFRASTRUCTURE ARCHITECT Unavailable [phone] Allergies No known active allergies Medications No [...] Industry Job Start Date Job End Date [employer] Not on file Not on file [...] (1 of 3 - 19+ 3-dose series) 12/1993 Colonoscopy 02/22/2020 COVID-19 Vaccine (1 - 2024-25 season) 2024 Pneumococcal Vaccines 50+ (1 of 1 - PCV) 2025 Zoster (Shingles) Vaccine (1 of 2) 2025 Influenza Vaccine 03/20/2025 Insurance O O O Care Teams Field Return Repairer Relationship Specialty Start Date End Date Raisa Winslow MD PCP - General Internal Medicine 12/24/20 Albertina Herrera RN [address] [address] Registered Nurse Hepatology 12/31/20 Ninoska Louis APRN [address] [address] Nurse Practitioner Hepatology 12/31/20
--- OUTSIDE RECORDS SUMMARY | 2025-03-11 15:53 | XMS_ITS | Encounter Summary ---
Author Organization [facility] Address [address] [place] [address] Care Team Providers Care Coverstitch Machine Operator Name Role Phone Cherelle Crouch MD Primary Care Provider [phone] Encounter Details Date Type Department Care Team (Late Contact Info) Description 11/14/[address] [facility] - Main Lab [address] [facility] [place] [id number] Willian Jaffe PA [address] [facility] [address] [place] [address] Respiratory syncytial virus pneumonia; Respiratory syncytial virus as the cause of diseases classified elsewhere; Acute upper respiratory infection, unspecified; Cough, unspecified Social History Tobacco Use Types Packs/Day Years Used Date Smoking Tobacco: Never Alcohol Use Standard Drinks/Week Comments Yes 0 (1 standard drink = 0.6 oz pur e alcohol) Sex and Gender Information Value Date Recorded Sex Assigned at Male 01/29/2025 7:04 AM EDT Legal Sex Male 8:30 AM EST Gender Identity Male 01/29/2025 7:04 AM EDT Sexual Orientation Straight 01/29/2025 7: 04 AM EDT documented as of this encounter Plan of Treatment Upcoming Encounters Date Type Department Care Team (Late Contact Info) Description 06/09/2025 4:00 PM EDT Office Visit Internal Medicine - [place] [address] [place] [id number] Cherelle Crouch MD [address] [place] [address] documented as of this encounter Procedures Procedure Name Priority Date/Time Associated Diagnosis Comments [id number], RSV, FLU A AND B QUALITATIVE RT-PCR, LOCAL REFERENCE LAB Routine 11/14/2024 12:00 AM EDT Respiratory syncytial virus pneumonia Respiratory syncytial virus as the cause of diseases classified elsewhere Acute upper respiratory infection, unspecified Cough, unspecified CULTURE THROAT Routine 11/14/2024 12:00 AM EDT Respiratory syncytial virus pneumonia Respiratory syncytial virus as the cause of diseases classified elsewhere Acute upper respiratory infection, unspecified Cough, unspecified documented in this encounter Results * [id number], RSV, Influenza A and B qualitative RT-PCR (11/14/2024 12:00 AM EDT) [facility] SARS COV-2 Not Detected Not Detected LAB MOLECULAR DIAGNOSTICS METHOD 11/14/2024 4:47 PM EDT [facility] Comment: Disclaimer: The manner in which this information is used to guide patient care is the responsibility of the healthcare provider. Testing was performed using the [employer] Alinity m SARS-CoV-2 test. This test has been authorized by FDA under an Emergency Use Authorization (EUA). This test is only authorized for the duration of time the declaration that circumstances exist justifying the authorization of the emergency use of in vitro diagnostic tests for detection of SARS-CoV-2 virus and/or diagnosis of COVID-19 infection under section 564(b)(1) of the Act, 21 U.S.C. 360bbb- 3(b)(1), unless the authorization is terminated or revoked sooner. Fact sheet for Healthcare Providers can be found at: https://www.fda.gov/media/778211/download Fact sheet for Patients can be found at: https://www.fda.gov/media/070652/download Influenza A PCR Not Detected Not Detected LAB MOLECULAR DIAGNOSTICS METHOD 11/14/2024 4:47 PM EDT [facility] Influenza B PCR Not Detected Not Detected LAB MOLECULAR DIAGNOSTICS METHOD 11/14/2024 4:47 PM EDT [facility] RSV PCR Not Detected Not Detected LAB MOLECULAR DIAGNOSTICS METHOD 11/14/2024 4:47 PM EDT [facility] Swab Nasopharyngeal structure / Unknown 11/14/2024 11/14/2024 12:45 PM EDT [facility]ian [facility] MICROBIOLOGY - GENERAL ORD ERABLES Final Result Performing Organization Address City/[facility]/ZIP Co de Phone Number [facility] [address] [place] [address], [place] [phone] * Culture throat (11/14/2024 12:00 AM EDT) Culture, Throat No pathogens isolated. 11/16/2024 2:32 PM EDT [facility] Swab Structure of anterior portion of neck / Unknown 11/14/2024 11/14/2024 12:45 PM EDT [facility] MICROBIOLOGY - GENERAL ORD ERABLES Final Result Performing Organization Address City/[facility]/ZIP Co de Phone Number [facility] [address] [place] [address], [place] [phone] documented in this encounter Visit Diagnoses Diagnosis Respiratory syncytial virus pneumonia Pneumonia due to respiratory syncytial virus Respiratory syncytial virus as the cause of diseases classified elsewhere Acute upper respiratory infection, unspecified Cough, unspecified documented in this encounter Additional Health Concerns Infection Onset Date Last Indicated Resolved Time Respiratory Rule-Out 11/14/2024 11/14/2024 025 4:47 PM EDT documented as of this encounter Care Teams Coverstitch Machine Operator Relationship Specialty Start Date End Date Cherelle Crouch MD [address] [place] [address] PCP - General Family Medicine 01/29/25 documented as of this encounter
--- OUTSIDE RECORDS SUMMARY | 2025-03-11 15:54 | XMS_ITS | Clinical Summary ---
Author Organization [facility] Address [address] [place] [address] Phone Care Team Providers Care Search Manager Name Role Phone Raisa Winslow MD Primary Care Provider Allergies No known active allergies Medications moxifloxacin (VIGAMOX) 0.5 % ophthalmic solution Place 1 drop into the right eye 4 (four) times a day. 3 mL 1 1 Active oxyCODONE-aceta minophen (PERCOCET) 5-325 mg per tablet Take 1 tablet by mouth every 4 (four) hours as needed for pain (specific location in comments). Partial fill upon patient request. 5 tablet 1 Active Additional Information Patient not taking.Reported on 12/29/2020 loteprednol etabonate (LOTEMAX SM) 0.38 % DrpG Apply 1 drop in right eye to eye Every two hours. 5 g 3 1 Active Additional Information Patient not taking.Reported on 12/29/2020 Active Problems No known active problems Social History Tobacco Use Types Packs/Day Years Used Date Smoking Tobacco: Never Assessed Education Answer Date Recorded Are you interested in more education? Not on corine e 12/15/2022 Are you concerned about learning? Not on file 12/15/2022 No 12/15/2022 No 12/15/2022 Digital Access Answer Date Recorded No 01/12/2023 No 01/12/2023 Reliable internet access at home? Not on file 01/12/2023 Device with a working camera? Not on file Sex and Gender Information Value Date Recorded Sex Assigned at Not on file Legal Sex Male 9:29 PM EDT Gender Identity Not on file Sexual Orientation Not on file Plan of Treatment Health Maintenance Due Date Last Done Comments Adult Td,Tdap Booster 1975 LIPID PANEL 1975 DEPRESSION SCREENING 1987 SMOKING Hx and SMOKELESS TOB ACCO SCREENING 02/22/1988 HEPATITIS C SCREENING 1993 HIV ONE-TIME SCREENING (18-6 5 YEARS) 1993 COLOGUARD 02/22/2020 COLONOSCOPY 02/22/2020 COLORECTAL CANCER SCREENING 02/22/2020 FIT TEST 02/22/2020 FOBT 02/22/2020 SIGMOIDOSCOPY 02/22/2020 VIRTUAL COLONOSCOPY 02/22/2020 COVID-19 VACCINE (2 - 2023-2 5 season) 2024 12/12/2020 PNEUMOCOCCAL VACCINES (50+ y ears) (1 of 1 - PCV) 2025 ZOSTER VACCINES (1 of 2) 2025 HEPATITIS A VACCINES Aged Out No long er eligible based on patient's age to complete this topic HIB VACCINES Aged Out No longer eligi ble based on patient's age to complete this topic MENINGOCOCCAL VACCINES (ACWY) Aged Out No longer eligible based on patient's age to complete this topic MENINGOCOCCAL VACCINES (B) Aged Out N o longer eligible based on patient's age to complete this topic Medical Devices Not on file [facility] Care Teams Search Manager Relationship Specialty Start Date End Date Raisa Winslow MD [address] [place] [address] [id number] [place] [address] PCP - General Internal Medicine 12/01/20 Additional Source Comments The information contained in this document represents components of the legal health record. It is not the complete legal health record.[facility]
--- OUTSIDE RECORDS SUMMARY | 2025-03-11 15:54 | XMS_ITS | Patient Health Record ---
Author Organization [facility] Address [address] [facility] [facility] [address] [place] [address] Care Team Providers Care Streetcar Conductor Name Role Phone ALPESH BILLS Primary Care Provider Unavailab bandar Godinez Zaheer Unavailable [phone] Migration, Provider Unavailable Unavailable Allergies No Known Allergies Reason For Referral No Information Medications Medication SIG (Take, Route, Fr equency, Duration) Notes Start Date End Date Status Multivitamin - 1 tab(s) orally once a day; Duration: 30 day(s) Active Indomethacin 50 MG 1 cap(s) orally qd Active Social History Tobacco Use: Social History Observation Description Date Details (start date - stop date) Never Smoker NA - NA Tobacco use: Question Answer Notes Patient is a: never smoker Section Notes: NOT MUCH OUTDOORS. [employer] AND SOFT BALL. NOT MUCH OUTDOORS. [employer] SOFT BALL. NOT MUCH OUTDOORS. [employer] AND SOFT BALL. Encounters Encounter Location Date Provider Diagnosis [facility] [address] [facility] [address] [place] [address] 02/07/2025 Provider Migration Arthralgia M25.50 Assessments Encounter Date Diagnosis (ICD Code) Assessment Notes Treatment Notes Treatment Clinical Notes Section Notes 02/07/2025 Arthralgia (ICD-10 - M25.50) Plan Of Treatment Pending Test Test Name Order Date CMV DNA, QN, REAL-TIME PCR 12/29/2020 DNASE-B AB 12/29/2020 Insurance Providers Payer Name Payer Address Payer Phone Subscriber Number Group Number Insured Name Patient Relationship to Insured Coverage Start Date Coverage End Date [employer] [address] [place] [id number] DANIEL CAM Self - patient is the insured Medical (General) History Medical History History ICD Code VIRAL MENINGITIIS HYPERLIPIDEMIA HEPATITIC STEATOSIS Surgical History Surgery Date(Month/Year) EYE SURGERY FOR CORNEAL EROSIION
--- OUTSIDE RECORDS SUMMARY | 2025-03-11 15:54 | XMS_ITS ---
Author Name [facility] Organization Unknown History of Medication Use Medication Directions Dispensed Refills Start Date End Date Stat us omeprazole (PriLOSEC) [address] capsule Take 1 capsule (40 mg total) by mouth 1 (one) time each day. 12/15/2024 active cetirizine (ZyrTEC) 10 mg tablet Take 1 tablet (10 mg total) by mouth 1 (one) time each day. 11/19/2024 active omega 5-ytt-exe-fish oil (Fish OiL) 1,000 (120-180) mg capsule Take 1 capsule (1,000 mg total) by mouth. 07/25/2024 active adalimumab (Humira,CF, Pen) 40 mg/0.4 mL pen Inject 0.4 mL (40 mg total) under the skin. 01/18/2024 01/29/2025 aborted atorvastatin (LIPITOR) 40 mg tablet Take 1 tablet (40 mg total) by mouth 1 (one) time each day. 02/01/2023 active cholecalciferol (Vitamin D3) 5,000 Units tablet Take 10 mcg by mouth. 03/02/2022 active Saccharomyces boulardii (RESISTANCE FORMULA PROBIOTIC ORAL) Take by mouth. 03/02/2022 active acetaminophen (Tylenol Extra Strength) 500 mg tablet Take 1 tablet (500 mg total) by mouth. 11/11/2020 active atorvastatin 40 mg tablet TAKE 1 TABLET BY MOUTH EVERY DAY active bupropion HCl XL 150 mg 24 hr tablet, extended release TAKE 1 TABLET BY MOUTH EVERY DAY IN THE MORNING active bupropion HCl XL 300 mg 24 hr tablet, extended release TAKE 1 TABLET BY MOUTH EVERY DAY IN THE MORNING active doxycycline monohydrate 100 mg capsule TAKE 1 CAPSULE BY MOUTH EVERY 12 HOURS FOR 10 DAYS active gabapentin 300 mg capsule TAKE 1 CAPSULE BY MOUTH TWICE DAILY active Hyrimoz(CF) Pen 40 mg/0.4 mL subcutaneous pen injector active metaxalone 800 mg tablet TAKE ONE TABLET BY MOUTH THREE TIMES A DAY FOR 7 DAYS active naproxen 500 mg tablet TAKE 1 TABLET BY MOUTH EVERY 12 HOURS WITH FOOD OR MILK NEEDED active tizanidine 2 mg tablet TAKE 1 TABLET BY MOUTH THREE TIMES DAILY NEEDED active tramadol 50 mg tablet TAKE 2 TABLETS BY MOUTH THREE TIMES DAILY WITH 650 MG OF TYLENOL THREE TIMES DAILY NEEDED active valacyclovir 1 gram tablet TAKE 1 TABLET BY MOUTH EVERY DAY active cyanocobalamin (VITAMIN B-12) 1,000 mcg tablet Take 1 tablet (1,000 mcg total) by mouth 1 (one) time each day. active Hyrimoz,CF, Pen 40 mg/0.4 mL pen active No known medications No known medications active Allergies Allergen Reaction Severity Comment Documented Date Source Statu s LACTOSE NAUSEA AND VOMITING 03/14/2023 [facility] active FOOD ALLERGY FORMULA 11/11/2020 [facility] active Problems Problem Status Onset Date Problem Type Date of Resoluti on Source Elevated triglycerides with high cholesterol active 2021-02-28 [facility]Act [facility] Abnormal liver function test active 2020-11-22 ProblemAct [facility] Lactose intolerance active 2020-11-11 ProblemAct [facility] Chronic diarrhea of unknown origin active 2023-03-14 ProblemAct [facility] Diarrhea active 2025-01-29 ProblemAct [facility] Gastrocnemius tendon rupture active 2024-01-22 ProblemAct [facility] Cervical radiculopathy, chronic active 2020-11-11 [facility]Act [facility] Anxiety active 2023-03-14 [facility]Act [facility] Arthralgia of multiple sites active 2020-11-11 [facility]Act [facility] Lyme disease active 2023-03-14 ProblemAct [facility] Encounter to establish care active 2025-01-29 ProblemAct [facility] Plantar fasciitis active 2020-11-11 [facility]Act [facility] Rheumatoid arthritis involving multiple sites with positive rheumatoid factor (CMS/HCC V24, CMS/HCC V28) active 2025-01-29 [facility]Act [facility] Corneal erosion active 2020-11-[address] [facility] Headache, temporal active 2020-11-11 ProblemAct [facility] Depression active 2023-03-14 ProblemAct [facility] Rupture of gastrocnemius tendon active 2024-01-22 ProblemAct [facility] Encounters Encounter Type Encounter Reason Primary Diagnosis Location Date Ambulatory Follow-up Pure hypercholesterolemia, unspecified [facility] 02/06/2025 Ambulatory new patient [facility] in other specified circumstances [facility] 01/29/2025 Ambulatory [facility] 09/22/2024 Ambulatory [facility] 02/15/2024 Ambulatory [facility] 01/23/2024 Ambulatory [facility] 01[facility]22/2024 Ambulatory [facility] 01/22/2024 Ambulatory [facility] 01/22/2024 Ambulatory [facility] 01/22/2024 Ambulatory [facility] 01/22/2024 Amb[facility] 01/22/2024 Ambulatory [facility] 01/22/2024 Care Team Organization Name Specialty Phone Email Start Date End Da te [facility] MIGUEL [facility] 01/29/2025 [facility] SUZAN MIGU[facility] 01/29/2025 [facility] 12/28/2021 08/26/2022
--- OUTSIDE RECORDS SUMMARY | 2025-03-11 15:54 | XMS_ITS | Patient Health Record ---
Author Organization [facility] Address [address] [facility] [address] [place] [address] Care Team Providers Care Auto Winder Name Role Phone Willian Jaffe Primary Care Provider Unavailcarlos enrique e Artie Jalloh Unavailable [phone] Keke Mcguire Unavailable [phone] Allergies No Known Allergies Reason For Referral Reason [id number] - Surgery Auth Referral Organization [facility] Referring Provider First Name Artie Referring Provider Last Name Yeimi Referring Provider Speciality Otology, L aryngology, Rhinology Referred Organization [facility] Referred Provider Artie Jalloh Referred Address [address] [facility],[place], [place],[address], Referred Provider Specialty Otology, Lar yngology, Rhinology Referral Priority Routine Medications Medication SIG (Take, Route, Frequency, Duration) Notes Start Date End Date Status Omeprazole 40 MG Oral for 90 Days Active Hyrimoz 40 MG/0.4ML Subcutaneous for 28 Days Active Atorvastatin Calcium 40 MG TAKE 1 TABLET DAILY Oral for 90 Days Active Hyrimoz 40 MG/0.4ML Subcutaneous for 28 Days Active Social History Tobacco Use: Social History Observation Description Date Details (start date - stop date) Never Smoker NA - NA Smoking: Question Answer Notes Are you a : Never Smoker Alcohol Screen Question Answer Notes Did you have a drink contain ing alcohol in the past year? Yes How often did you have six o r more drinks on one occassion in the past year? Less than monthly (1 point) How many drinks did you have on a typical day when you were drinking in the past year? 3 or 4 (1 point) How often did you have a dri nk containing alcohol in the past year? Two to three times per week (3 points) Problems Problem Type SNOMED Code ICD Code Onset Dates Problem Status W/U Status Risk Notes Problem 21616670 Chronic laryngitis (J37.0) Active confirmed Problem 56335996 HAILY (obstructive sleep apnea) (G47.33) Active confirmed Vital Signs Height 67 in 01/08/2025 Weight 210 lbs 01/08/2025 BMI 32.89 kg/m2 01/08/2025 Encounters Encounter Location Date Provider Diagnosis [facility] [address] [place] [id number] 12/24/2024 Artie Letona Deviated nasal septum J34.2 ; Hypertrophy of both inferior nasal turbinates J34.3 ; Nasal congestion R09.81 ; HAILY (obstructive sleep apnea) G47.33 ; Acute recurrent streptococcal tonsillitis J03.01 and Chronic laryngitis J37.[address] [address] 01/01/2025 Artie Letona Deviated nasal septum J34.2 and Hypertrophy of both inferior nasal turbinates J34.3 [facility] [address] [address] 01/08/2025 Keke Mcguire Deviated nasal septum J34.2 and Hypertrophy of both inferior nasal turbinates J34.3 [facility] [address] [address] 12/24/2024 Artie Letona [facility] [employer] [address] [address] 01/01/2025 Ke[facility] Mcguire [facility] [address] [address] 01/06/2025 Keke Mcguire Assessments Encounter Date Diagnosis (ICD Code) Assessment Notes Treatment Notes Treatment Clinical Notes Section Notes 12/24/2024 Deviated nasal septum (ICD-10 - J34.2) longstanding chronic refractory nasal obstruction, despite prior use of saline nasal spray, xnyr-ojm-incynta decongestants and fluticasone nasal spray. Primarily due to fixed anatomic obstruction from a deviated septum and inferior turbinate hypertrophy. He may reasonably be considered for septoplasty with bilateral inferior turbinate reduction to optimize his nasal airway for relief of symptoms as well as to facilitate future treatments directed at his sleep disordered breathing, whether another trial of CPAP, an oral appliance, or possibly hypoglossal nerve implant The indications/risks/be nefits of septoplasty with inferior turbinate SMR reduction reviewed in detail, including, but not limited to, bleeding, need for nasal packing, septal hematoma, septal perforation, numbness of the upper central incisors, CSF leak, recurrence of deviated septum, failure to achieve desired results, need for additional medical and/or surgical therapy. consent form reviewed and signed, he would like to proceed with scheduling. Pattern of recurrent strep but does not meet surgical criteria at this time throat symptoms likely manifestations of laryngopharyngeal reflux, diet and lifestyle measures reviewed, continue omeprazole 12/24/2024 Hypertrophy of both inferior nasal turbinates (ICD-10 - J34.3) longstanding chronic refractory nasal obstruction, despite prior use of saline nasal spray, exjq-hew-kpylofw decongestants and fluticasone nasal spray. Primarily due to fixed anatomic obstruction from a deviated septum and inferior turbinate hypertrophy. He may reasonably be considered for septoplasty with bilateral inferior turbinate reduction to optimize his nasal airway for relief of symptoms as well as to facilitate future treatments directed at his sleep disordered breathing, whether another trial of CPAP, an oral appliance, or possibly hypoglossal nerve implant The indications/risks/be nefits of septoplasty with inferior turbinate SMR reduction reviewed in detail, including, but not limited to, bleeding, need for nasal packing, septal hematoma, septal perforation, numbness of the upper central incisors, CSF leak, recurrence of deviated septum, failure to achieve desired results, need for additional medical and/or surgical therapy. consent form reviewed and signed, he would like to proceed with scheduling. Pattern of recurrent strep but does not meet surgical criteria at this time throat symptoms likely manifestations of laryngopharyngeal reflux, diet and lifestyle measures reviewed, continue omeprazole 01/01/2025 Deviated nasal septum (ICD-10 - J34.2) 01/08/2025 Deviated nasal septum (ICD-10 - J34.2) crusts are debrided. PT tolerates this well. Went over saline/rinse use. Will follow up in 3 months. 01/08/2025 Hypertrophy of both inferior nasal turbinates (ICD-10 - J34.3) 01/01/2025 Hypertrophy of both inferior nasal turbinates (ICD-10 - J34.3) 12/24/2024 Nasal congestion (ICD-10 - R09.81) longstanding chronic refractory nasal obstruction, despite prior use of saline nasal spray, qhyy-ptc-abnzwcw decongestants and fluticasone nasal spray. Primarily due to fixed anatomic obstruction from a deviated septum and inferior turbinate hypertrophy. He may reasonably be considered for septoplasty with bilateral inferior turbinate reduction to optimize his nasal airway for relief of symptoms as well as to facilitate future treatments directed at his sleep disordered breathing, whether another trial of CPAP, an oral appliance, or possibly hypoglossal nerve implant The indications/risks/be nefits of septoplasty with inferior turbinate SMR reduction reviewed in detail, including, but not limited to, bleeding, need for nasal packing, septal hematoma, septal perforation, numbness of the upper central incisors, CSF leak, recurrence of deviated septum, failure to achieve desired results, need for additional medical and/or surgical therapy. consent form reviewed and signed, he would like to proceed with scheduling. Pattern of recurrent strep but does not meet surgical criteria at this time throat symptoms likely manifestations of laryngopharyngeal reflux, diet and lifestyle measures reviewed, continue omeprazole 12/24/2024 HAILY (obstructive sleep apnea) (ICD-10 - G47.33) longstanding chronic refractory nasal obstruction, despite prior use of saline nasal spray, raha-fur-vntpxzj decongestants and fluticasone nasal spray. Primarily due to fixed anatomic obstruction from a deviated septum and inferior turbinate hypertrophy. He may reasonably be considered for septoplasty with bilateral inferior turbinate reduction to optimize his nasal airway for relief of symptoms as well as to facilitate future treatments directed at his sleep disordered breathing, whether another trial of CPAP, an oral appliance, or possibly hypoglossal nerve implant The indications/risks/be nefits of septoplasty with inferior turbinate SMR reduction reviewed in detail, including, but not limited to, bleeding, need for nasal packing, septal hematoma, septal perforation, numbness of the upper central incisors, CSF leak, recurrence of deviated septum, failure to achieve desired results, need for additional medical and/or surgical therapy. consent form reviewed and signed, he would like to proceed with scheduling. Pattern of recurrent strep but does not meet surgical criteria at this time throat symptoms likely manifestations of laryngopharyngeal reflux, diet and lifestyle measures reviewed, continue omeprazole 12/24/2024 Acute recurrent streptococcal tonsillitis (ICD-10 - J03.01) longstanding chronic refractory nasal obstruction, despite prior use of saline nasal spray, jwgj-ana-stdunkh decongestants and fluticasone nasal spray. Primarily due to fixed anatomic obstruction from a deviated septum and inferior turbinate hypertrophy. He may reasonably be considered for septoplasty with bilateral inferior turbinate reduction to optimize his nasal airway for relief of symptoms as well as to facilitate future treatments directed at his sleep disordered breathing, whether another trial of CPAP, an oral appliance, or possibly hypoglossal nerve implant The indications/risks/be nefits of septoplasty with inferior turbinate SMR reduction reviewed in detail, including, but not limited to, bleeding, need for nasal packing, septal hematoma, septal perforation, numbness of the upper central incisors, CSF leak, recurrence of deviated septum, failure to achieve desired results, need for additional medical and/or surgical therapy. consent form reviewed and signed, he would like to proceed with scheduling. Pattern of recurrent strep but does not meet surgical criteria at this time throat symptoms likely manifestations of laryngopharyngeal reflux, diet and lifestyle measures reviewed, continue omeprazole 12/24/2024 Chronic laryngitis (ICD-10 - J37.0) longstanding chronic refractory nasal obstruction, despite prior use of saline nasal spray, lfsm-eho-xlphqkj decongestants and fluticasone nasal spray. Primarily due to fixed anatomic obstruction from a deviated septum and inferior turbinate hypertrophy. He may reasonably be considered for septoplasty with bilateral inferior turbinate reduction to optimize his nasal airway for relief of symptoms as well as to facilitate future treatments directed at his sleep disordered breathing, whether another trial of CPAP, an oral appliance, or possibly hypoglossal nerve implant The indications/risks/be nefits of septoplasty with inferior turbinate SMR reduction reviewed in detail, including, but not limited to, bleeding, need for nasal packing, septal hematoma, septal perforation, numbness of the upper central incisors, CSF leak, recurrence of deviated septum, failure to achieve desired results, need for additional medical and/or surgical therapy. consent form reviewed and signed, he would like to proceed with scheduling. Pattern of recurrent strep but does not meet surgical criteria at this time throat symptoms likely manifestations of laryngopharyngeal reflux, diet and lifestyle measures reviewed, continue omeprazole Plan Of Treatment Next Appt Details Provider Name:Keke simons, 04/16/2025 03:30:00 PM, [address] [facility], [place], [address], Insurance Providers Payer Name Payer Address Payer Phone Subscriber Number Group Number Insured Name Patient Relationship to Insured Coverage Start Date Coverage End Date [facility] [address] [place] [phone] [id number] Self - patient is the insured Medical (General) History Medical History History ICD Code rheumatoid arthritis GERD High cholesterol Recurrent corneal erosion syndrome Patient Medical History: Seasonal Allerg ies undefined Patient Medical History Cont inued: High blood pressure,Sleep apnea,Arthritis cancer: Other Cancer, other: Prostate Surgical History Surgery Date(Month/Year) Eye x 7 each side [facility]
== END 2025-03-11 16:30 | disposition home or self-care (01) ==
LOC: HO.RHE 15:48
PROVIDERS: PCP Student in an Organized Health Care Education/Training Program; Visit Provider Student in an Organized Health Care Education/Training Program
DX: M05.79 Rheumatoid arthritis with rheumatoid factor of multiple sites without organ or systems involvement (principal); R74.01 Elevation of levels of liver transaminase levels; Z51.81 Encounter for therapeutic drug level monitoring; Z79.620 Long term (current) use of immunosuppressive biologic
CPT/HCPCS: 99213